=== PATIENT | female | born 1955 | race African-American/Black ===

== ENCOUNTER 2016-06-15 07:56 | Day surgery (SDC) | payer OTHER ==
[2016-06-14 13:30] VITALS: BMI 45.4
[2016-06-15] MEDS ORDERED: PROPOFOL 20 ML ONE ×3 (10:13)
[2016-06-15 11:48] VITALS: TEMP 98.4
[2016-06-15 12:44] VITALS: BP 143/68; PULSE 56
== END 2016-06-15 12:44 | disposition home or self-care (01) ==
LOC: JASU-ENDO 07:56
PROVIDERS: ATTEND Internal Medicine Gastroenterology
PROC: 0DJD8ZZ Inspection of Lower Intestinal Tract, Via Natural or Artificial Opening Endoscopic (ICD-10-PCS; principal; 2016-06-15 09:30)
DX: D64.9 Anemia, unspecified (principal); K57.30 Diverticulosis of large intestine without perforation or abscess without bleeding; Z85.3 Personal history of malignant neoplasm of breast

== ENCOUNTER → 2016-06-22 | Day surgery (SDC) | payer OTHER ==
[2016-06-21 14:02] VITALS: BMI 45.4
[2016-06-22 12:39] VITALS: TEMP 98
[2016-06-22 13:33] VITALS: BP 126/58; PULSE 63
--- NOTE | 2016-06-23 13:29 | PATH ---
Surgical Pathology Report Patient Name: SADIE BROWNE [facility]. Rec. #: [id number] /Age/Gender: 1955 (Age: 61) / F Account: [id number] Location: [facility]-ENDOSCOPY Taken: 06/22/2016 Received: 06/22/2016 Reported: 06/23/2016 Physicians: Tommy Feldman M.D. Specimen(s) Received BX EROSION BODY Clinical History Anemia Erosive gastritis Final Diagnosis STOMACH, BODY, EROSION, BIOPSY: GASTRIC OXYNTIC MUCOSA WITH MODERATE CHRONIC GASTRITIS WITH FOCAL SURFACE EROSION. IMMUNOSTAIN FOR H. PYLORI IS NEGATIVE FOR ORGANISMS. Electronically Signed Son Mcgarry M.D. Gross Description Received in formalin, labeled "biopsy erosion body" are 2 north, irregular portions of soft tissue measuring 0.2 and 0.7 cm in greatest dimension. The specimens are submitted in toto in one cassette. /06/22/201606/22/2016
== END | disposition home or self-care (01) ==
LOC: JASU-ENDO 09:47
PROVIDERS: ATTEND Internal Medicine Gastroenterology
PROC: 0DB68ZX Excision of Stomach, Via Natural or Artificial Opening Endoscopic, Diagnostic (ICD-10-PCS; principal; 2016-06-22 11:00)
DX: K21.9 Gastro-esophageal reflux disease without esophagitis (principal); K25.9 Gastric ulcer, unspecified as acute or chronic, without hemorrhage or perforation
CPT/HCPCS: 88305-TC; 88342-TC

== ENCOUNTER 2016-11-19 17:15 | Inpatient (IN) | payer OTHER ==
--- NOTE | 2016-11-19 17:18 | PDOC ---
History of Present Illness - General Stated Complaint: POSSIBLE STROKE Time Seen by Provider: 11/19/16 17:17 Past History - Past Medical History Allergies/Adverse Reactions: Allergies Allergy/AdvReac Type Severity Reaction Status Date / Time No Known Allergies Allergy Verified 02/23/15 11:26 Home Medications: Ambulatory Orders Tamoxifen Citrate 20 mg PO DAILY 01/11/12 Zolpidem Tartrate [Ambien] 10 mg PO HS 04/14/12 Pravastatin Sodium [Pravachol -] 20 mg PO HS 10/09/12 Sertraline HCl [Zoloft -] 100 mg PO DAILY 04/11/14 Amlodipine Besylate [Norvasc -] 5 mg PO DAILY 04/12/14 Hydrocodone Bit/Acetaminophen [Vicodin Hp 10-300mg -] 1 tab PO Q6H PRN #60 tablet 08/09/14 Hydrochlorothiazide 25 mg PO DAILY #30 tablet 02/23/15 Albuterol Sulfate Inhaler - [Ventolin HFA Inhaler -] 1 - 2 inh PO QID PRN Aspirin [ASA -] 81 mg PO DAILY 06/14/16 Bisacodyl [Dulcolax] 5 mg PO DAILY 06/14/16 Diphenhydramine HCl [Benadryl Capsule -] 25 mg PO DAILY 06/14/16 FENTANYL 50mcg PATCH [DURAGESIC 50mcg PATCH -] 1 patch TD ASDIR 06/14/16 Gabapentin 300 mg PO DAILY 06/14/16 Ibuprofen/Famotidine [Duexis 800-26.6 mg Tablet] 1 each PO DAILY PRN 06/14/16 Salmeterol/Fluticasone [Advair 250Mcg/50Mcg -] 1 inh IH DAILY PRN 06/14/16 Tizanidine HCl [Zanaflex] 2 mg PO HS 06/14/16 Anemia: Yes (AND SICKLE CELL TRAIT) Asthma: Yes Cancer: Yes (RT BREAST CA) Cardiac Disorders: No CVA: Yes (TIA X 3 RECENTLY 2012) COPD: No CHF: No Dementia: No Diabetes: No GI Disorders: Yes (GERD) Disorders: No HTN: Yes Hypercholesterolemia: Yes Liver Disease: Yes (FATTY) Psychiatric Problems: Yes (depression) Suicide Attempt (Hx): No Seizures: No Thyroid Disease: No - Surgical History Abdominal Surgery: Yes (bariatric GASTRIC SLEEVE 01/2011) Appendectomy: No Cardiac Surgery: No Cholecystectomy: No Gastric Stapling: Yes (gastric sleeve) Lung Surgery: No Neurologic Surgery: No Orthopedic Surgery: No - Psycho/Social/Smoking Cessation Hx Anxiety: No Suicidal Ideation: No Smoking Status: No Smoking History: Never smoked Have you smoked in the past 12 months: No Number of Cigarettes Smoked Daily: 0 If you are a former smoker, when did you quit?: 1999 Hx Alcohol Use: No Drug/Substance Use Hx: No Substance Use Type: None Hx Substance Use Treatment: No
--- NOTE | 2016-11-19 17:18 | PDOC ---
History of Present Illness - General History Source: Care Provider, Family Exam Limitations: Clinical Condition - History of Present Illness Initial Comments: 11/19/16 18:08 The patient is a 61 year old female with a significant past medical history of HTN, TIA, DM (not on medication), hyperlipidemia, depression, and breast CA ( partial right mastectomy), who presents to the ER with shaking for one day. Patients skilled nursing professional reports patient was in her usual state of health earlier today, made breakfast, and was verbally communicating with the aide. As per aide , patient took a nap and woke up reporting that she felt she was in deep sleep, like in a coma. Aide says that the patient began to shake and rub her arms up and down while sitting. Tears also started to run down patients face two hours ago, at 1630. As per daughter, patients mouth began to twitch and her speech slurred two days ago, then resolved. Denies nausea, vomiting Denies fever, chills, cough Denies syncope, lightheadedness, headache Denies changes in vision PCP: Dr. Goodman <Karmen Trejo - Last Filed: 11/19/16 18:28> <Lizett Adam - Last Filed: 11/19/16 18:35> <Mayte Penaloza - Last Filed: 11/19/16 19:32> - General Stated Complaint: POSSIBLE STROKE Time Seen by Provider: 11/19/16 17:17 Past History <Karmen Trejo - Last Filed: 11/19/16 18:28> - Past Medical History Anemia: Yes (AND SICKLE CELL TRAIT) Asthma: Yes Cancer: Yes (RT BREAST CA) Cardiac Disorders: No CVA: Yes (TIA X 3 RECENTLY 2012) COPD: No CHF: No Dementia: No Diabetes: No GI Disorders: Yes (GERD) Disorders: No HTN: Yes Hypercholesterolemia: Yes Liver Disease: Yes (FATTY) Psychiatric Problems: Yes (depression) Suicide Attempt (Hx): No Seizures: No Thyroid Disease: No - Surgical History Abdominal Surgery: Yes (bariatric GASTRIC SLEEVE 01/2011) Appendectomy: No Cardiac Surgery: No Cholecystectomy: No Gastric Stapling: Yes (gastric sleeve) Lung Surgery: No Neurologic Surgery: No Orthopedic Surgery: No - Psycho/Social/Smoking Cessation Hx Anxiety: No Suicidal Ideation: No Smoking Status: No Smoking History: Never smoked Have you smoked in the past 12 months: No Number of Cigarettes Smoked Daily: 0 If you are a former smoker, when did you quit?: 1999 Hx Alcohol Use: No Drug/Substance Use Hx: No Substance Use Type: None Hx Substance Use Treatment: No <Lizett Adam - Last Filed: 11/19/16 18:35> <Mayte Penaloza - Last Filed: 11/19/16 19:32> - Past Medical History Allergies/Adverse Reactions: Allergies Allergy/AdvReac Type Severity Reaction Status Date / Time No Known Allergies Allergy Verified 11/19/16 17:34 Home Medications: Ambulatory Orders Tamoxifen Citrate 20 mg PO DAILY 01/11/12 Zolpidem Tartrate [Ambien] 10 mg PO HS 04/14/12 Pravastatin Sodium [Pravachol -] 20 mg PO HS 10/09/12 Sertraline HCl [Zoloft -] 100 mg PO AM 04/11/14 Amlodipine Besylate [Norvasc -] 5 mg PO AM 04/12/14 Albuterol Sulfate Inhaler - [Ventolin HFA Inhaler -] 1 - 2 inh PO QID PRN Aspirin [ASA -] 81 mg PO AM 06/14/16 Bisacodyl [Dulcolax] 5 mg PO DAILY 06/14/16 Diphenhydramine HCl [Benadryl Capsule -] 50 mg PO DAILY PRN 06/14/16 Gabapentin 300 mg PO TID 06/14/16 Salmeterol/Fluticasone [Advair 250Mcg/50Mcg -] 1 inh IH DAILY PRN 06/14/16 Tizanidine HCl [Zanaflex] 4 mg PO BID PRN 06/14/16 Cholecalciferol (Vitamin D3) [Vitamin D3] 50,000 unit PO Q7D 11/19/16 Hydrochlorothiazide 25 mg PO AM 11/19/16 Tamoxifen Citrate 20 mg PO AM 11/19/16 Review of Systems - Review of Systems Able to Perform ROS?: No <Karmen Trejo - Last Filed: 11/19/16 18:28> *Physical Exam - Vital Signs Last Vital Signs Temp Pulse Resp BP Pulse Ox 99.3 F 60 18 198/84 96 11/19/16 17:15 11/19/16 17:15 11/19/16 17:15 11/19/16 17:15 11/19/16 17:15 - Physical Exam Comments: 11/19/16 18:09 GENERAL: Able to follow commands. Awake, alert, and fully oriented, in no acute distress HEAD: No signs of trauma EYES: PERRLA, EOMI, sclera anicteric, conjunctiva clear ENT: Pucked mouth, but symmetric. Unable to move mouth. Auricles normal inspection, hearing grossly normal, nares patent, oropharynx clear without exudates. Moist mucosa NECK: Normal ROM, supple, no lymphadenopathy, JVD, or masses LUNGS: Breath sounds equal, clear to auscultation bilaterally. No wheezes, and no crackles HEART: Regular rate and rhythm, normal S1 and S2, no murmurs, rubs or gallops ABDOMEN: Soft, nontender, normoactive bowel sounds. No guarding, no rebound. No masses EXTREMITIES: no edema. No clubbing or cyanosis. No cords, erythema, or tenderness NEUROLOGICAL: Left and right upper extremity some strength against gravity. 5/ 5 residential aide. Sensation intact. Cranial nerves II through XII grossly intact. SKIN: Warm, Dry, normal turgor, no rashes or lesions noted. <Uts,Karmen - Last Filed: 11/19/16 18:28> - Vital Signs Last Vital Signs Temp Pulse Resp BP Pulse Ox 99.3 F 56 L 16 174/81 100 11/19/16 17:15 11/19/16 18:36 11/19/16 18:36 11/19/16 18:36 11/19/16 18:36 <Mayte Penaloza - Last Filed: 11/19/16 19:32> NIH Stroke Scale - Last Known Well Date/Time & Onset Date Last Known Well: 11/19/16 Time Last Known Well: 16:30 - Initial Evaluation Level of consciousness: Alert Ask patient the month and their age: Both incorrect Ask patient to open & close eyes; make fist and let go: Both incorrect Best gaze (horizontal eye movement): Normal Visual field testing: No visual field loss Limb Ataxia: No ataxia Sensory(Use pinprick test arms,legs,trunk,face/side to side): Normal Best language (Describe picture, name items, read sentences): Mute Dysarthria (read several words): Near unintelligible or unable to speak Extinction and Inattention: No abnormality <Lizett Adam - Last Filed: 11/19/16 18:35> Critical Care Time/MDM Note - Medical Decision Making Note: 11/19/16 18:[address] Chicas <Karmen Trejo - Last Filed: 11/19/16 18:28> - Medical Decision Making Note: 11/19/16 18:33 Pt presents to the ED for the acute onset of aphasia, and restless, "shaking" movements of the arms. History of TIAs, also has depression for which she takes zoloft. On arrival to the ED, patient had symmmetric puckering of her lips, and was unable to speak. Is alert and follows commands with all extremities. Has global weakness--symmetric weakness of her bilateral upper and lower extremities. Symptoms seem more consistent with dystonic reaction than with CVA. Stat CT head negative. Case discussed with Dr. Chicas, who agrees that the patient is not a TPA candidate, but recommends that she be admitted for monitoring and MRI. Patient has some improvement after benadryl. <Lizett Adam - Last Filed: 11/19/16 18:35> Discharge Disposition <Karmen Trejo - Last Filed: 11/19/16 18:28> <Lizett Adam - Last Filed: 11/19/16 18:35> - Discharge Dispostion Admit: Yes <Mayte Penaloza - Last Filed: 11/19/16 19:32> - Diagnosis Cerebrovascular accident (CVA) - Discharge Dispostion Condition at time of disposition: Guarded - Referrals Referrals: Hellen Goodman [Primary Care Provider] -
[2016-11-19] MEDS ORDERED: SODIUM CHLORIDE 1,000 ML IV SCH (17:30)
[2016-11-19 17:59] VITALS: BMI 41.9
[2016-11-19 18:17] LABS: INR 0.96 (0.82-1.09); PROTHROMBIN TIME (PATIENT) 10.6 SEC (9.98-11.88)
[2016-11-19 18:19] LABS: ACTIVATED PTT 28.3 SECONDS (26.9-34.4); BASOPHIL 0.7 % (0-2.0); EOSINOPHIL 2.3 % (0-4.5); MCH 27.9 pg (25.7-33.7); MCHC 32.8 g/dl (32.0-36.0); MEAN CELL VOLUME 85.2 fl (80-96); MEAN PLT VOLUME 10.2 fl (7.5-11.1); NEUTROPHILS 63.8 % (42.8-82.8); PLATELET COUNT 215 K/MM3 (134-434); RDW 13.8 % (11.6-15.6); WHITE BLOOD COUNT 10.8 K/mm3 (4.0-10.0)
[2016-11-19 18:26] LABS: ALBUMIN 3.7 g/dl (3.4-5.0); ALK PHOS 83 U/L (45-117); ANION GAP 8 (8-16); BILIRUBIN,TOTAL 0.2 mg/dL (0.2-1.0); CALCIUM 8.6 mg/dL (8.5-10.1); CHOLESTEROL 228 mg/dL (50-200); CO2 27 mmol/L (21-32); CREATININE 0.8 mg/dL (0.55-1.02); GLUCOSE,RANDOM 87 mg/dL (74-106); LDL CHOLESTEROL (ONLY SJRH) 123 mg/dL (5-100); SGOT/AST 21 U/L (15-37); SGPT/ALT 32 U/L (12-78); TOT PROT 7.3 g/dl (6.4-8.2); TROPONIN I < 0.02 ng/ml (0.00-0.05)
[2016-11-19] MEDS ORDERED: ASPIRIN 300 MG SUPP.RECT RC ONE (18:38)
[2016-11-19] MEDS ORDERED: ASPIRIN 300 MG SUPP.RECT PR ONE (18:47)
--- NOTE | 2016-11-19 19:26 | PN ---
<Anita Jang - Last Filed: 11/19/16 19:26> Teaching Attending Note Name of Resident: Gonzales Seay <Salvador Shipley - Last Filed: 11/19/16 22:09> Teaching Attending Note ATTENDING PHYSICIAN STATEMENT I saw and evaluated the patient. I reviewed the resident's note and discussed the case with the resident. I agree with the resident's findings and plan as documented. SUBJECTIVE: The patient is a 61 year old female, accompanied by children, who presented to the ER with weakness for one day. As per ED note patients nursing home physician reported that the patient was in her usual state of health earlier today, made breakfast, and was verbally communicating with the aide. Patient took a nap and woke up feeling as though she was in deep sleep, like in a coma. Patient endorsed associated lightheadedness, dizziness, and blurred vision. As per daughter, patients mouth began to twitch and her speech slurred two days ago, then resolved. Upon examination, the patient was non-verbal but was able to nod in response to yes or no questions. Denies nausea, vomiting Denies fever, chills, cough Denies syncope, lightheadedness, headache Denies changes in vision PCP: Dr. Goodman PAST MEDICAL HISTORY: HTN, TIA x 3 (last was in 2012), DM (not on medication), hyperlipidemia, depression, breast cancer, asthma, sickle cell trait, GERD, hypercholesterolemia, PAST SURGICAL HISTORY: Partial right mastectomy, gastric sleeve (January 2011) FAMILY HISTORY: No pertinent history reported SOCIAL HISTORY: Former smoker (quit 1999) ALLERGIES: NKDA MEDICATIONS: Recently started taking gabapentin otherwise as per nursing note. OBJECTIVE: Last Vital Signs 3 Temp Pulse Resp BP Pulse Ox 99.3 F 56 L 16 174/81 100 11/19/16 17:15 11/19/16 18:36 11/19/16 18:36 11/19/16 18:36 11/19/16 18:36 Physical Examination: GENERAL: Awake, alert, and fully oriented, in no acute distress HEENT: (+) Atraumatic. PERRLA, Decreased temporal vision bilaterally. Moist mucosa. No JVD. Unable to open mandible LUNGS: No distress, speaks full sentences, clear to auscultation bilaterally HEART: Regular rate and rhythm, normal S1 and S2, no murmurs, rubs or gallops, peripheral pulses normal and equal bilaterally. ABDOMEN: Soft, nontender, normoactive bowel sounds. No guarding, no rebound. No masses EXTREMITIES: (+) Sander Operator strength 4/5 bilaterally. Foot strength 4/5 bilaterally. Bilateral upper extremity weakness (L>R) NEUROLOGICAL: (+) Cranial nerves II through XII grossly intact. Unable to speak , unable to ambulate. [place] SKIN: Warm, Dry, normal turgor, no rashes or lesions noted. Labs: CBCD 3 WBC 10.8 K/mm3 (4.0-10.0) H D 11/19/16 17:40 RBC 4.22 M/mm3 (3.60-5.2) 11/19/16 17:40 Hgb 11.8 GM/dL (10.7-15.3) D 11/19/16 17:40 Hct 36.0 % (32.4-45.2) D 11/19/16 17:40 MCV 85.2 fl (80-96) 11/19/16 17:40 MCHC 32.8 g/dl (32.0-36.0) 11/19/16 17:40 RDW 13.8 % (11.6-15.6) 11/19/16 17:40 Plt Count 215 K/MM3 (134-434) 11/19/16 17:40 MPV 10.2 fl (7.5-11.1) D 11/19/16 17:40 CMP 3 Sodium 146 mmol/L (136-145) H 11/19/16 17:40 Potassium 3.6 mmol/L (3.5-5.1) 11/19/16 17:40 Chloride 111 mmol/L (98-107) H 11/19/16 17:40 Carbon Dioxide 27 mmol/L (21-32) 11/19/16 17:40 Anion Gap 8 (8-16) 11/19/16 17:40 BUN 24 mg/dL (7-18) H 11/19/16 17:40 Creatinine 0.8 mg/dL (0.55-1.02) 11/19/16 17:40 Creat Clearance w eGFR > 60 (>60) 11/19/16 17:40 Calcium 8.6 mg/dL (8.5-10.1) 11/19/16 17:40 Total Bilirubin 0.2 mg/dL (0.2-1.0) D 11/19/16 17:40 AST 21 U/L (15-37) D 11/19/16 17:40 ALT 32 U/L (12-78) D 11/19/16 17:40 Alkaline Phosphatase 83 U/L (45-117) 11/19/16 17:40 Total Protein 7.3 g/dl (6.4-8.2) 11/19/16 17:40 Albumin 3.7 g/dl (3.4-5.0) 11/19/16 17:40 Imaging: EXAM: ECG. IMPRESSION: Sinus bradycardia otherwise normal ECG vent rate 52bpm EXAM: CHEST X-RAY PORTABLE* HISTORY PROVIDED: Rule out CVA. A single frontal portable projection of the chest at 6:16 PM is submitted. The heart size is enlarged. The lung webb are free of pulmonary infiltrates or pleural effusions. There is tortuosity and calcification of the thoracic aorta and degenerative arthritis of the thoracic spine. IMPRESSION: Cardiomegaly, no acute disease. Reported By: Yassine Hemphill MD 11/19/16 5810 EXAM: CT/HEAD CT (STROKE) HISTORY PROVIDED: Rule out CVA TECHNIQUE: Sequential axial images were obtained from the base of the skull to the vertex. There is no evidence of acute intracranial hemorrhage, mass lesions or infarctions. Since a prior study dated 02/23/2015, there has been no significant change. IMPRESSION: No evidence of acute intracranial pathology. Reported By: Yassine Hemphill MD 11/19/16 8332 ASSESSMENT AND PLAN : Acute dystonia versus stroke versus unlikely botulism versus tetnus check for hypothyroidism - 1 mg Cogentin vid - Neuro consult - Follow TSH - IVF NS 100 cc/ hr - Follow urinary analysis - CK in AM to r/o Rhabdomyolysis - MRI in AM Sinus nyasia - will place on telemetry to continue monitoring - Hold amlodipine and any beta blockers HTN - Give enalapril with vasotec IV PB 1.25 mg Q6H PRN DVT PPX - Heparin drip Admit to [facility]. Documentation prepared by Salvador Shipley, acting as medical equipment repair technician for Dr. Anita Jang MD.
[2016-11-19 20:21] LABS: URINE APPEARANCE CLEAR; URINE BILIRUBIN NEGATIVE (NEGATIVE); URINE BLOOD NEGATIVE (NEGATIVE); URINE COLOR STRAW; URINE GLUCOSE (UA) NEGATIVE (NEGATIVE); URINE KETONE NEGATIVE (NEGATIVE); URINE LEUK ESTERASE NEGATIVE (NEGATIVE); URINE NITRITE NEGATIVE (NEGATIVE); URINE PROTEIN NEGATIVE (NEGATIVE); URINE UROBILINOGEN NEGATIVE E.U./dl (0.2-1.0)
[2016-11-19] MEDS ORDERED: BENZTROPINE MESYLATE 2 MG/2 ML INJECTION IM ONE (20:30)
[2016-11-19] MEDS ORDERED: ACETAMINOPHEN 650 MG SUPP.RECT PR PRN (21:08)
[2016-11-19] MEDS ORDERED: ENALAPRILAT DIHYDRATE 1.25 MG/1 ML VIAL IVPB PRN ×2 (21:27→21:48)
--- NOTE | 2016-11-19 21:46 | HP ---
CHIEF COMPLAINT: dystonia PCP: Dr. Goodman HISTORY OF PRESENT ILLNESS: 61 y/o F w/PMH of HTN, TIA x3, DM (not on meds), HLD, depression, breast ca (s/ p R partial mastectomy), sickle cell trait presents to the ER for dystonia. Pt unable to talk at this time but can answer yes or no by nodding head or shaking head. Pt began having slurring of speech, light-headedness, and blurry vision 2 days ago which her son states happens every now and then. This morning she was able to speak and walk and went to take a nap. After waking up she had shaking of her body and was rubbing her hands up and down and her mouth was clenched closed and unable to open. She also has generalized weakness since waking up and is unable to ambulate. She denies any changes in her medications recently except the addition of gabapentin. She states she takes her medications as prescribed. She denies N/V/F/C, headache, CP, SOB, abd pain, dysuria, blood in urine, change in bowel movements, blood in stool, ringing in ears, sick contact , recent travel, recent trauma, any recent metal scrapes, raw honey consumption. Pt is AAOx3. ER course was notable for: (1) benadryl, asa 300 (2) cxr, head ct (3) Recent Travel: denies PAST MEDICAL HISTORY: HTN, TIA x3, DM (not on meds), HLD, depression, breast ca (s/p R partial mastectomy), sickle cell trait PAST SURGICAL HISTORY: partial R mastectomy Social History: Smoking: former smoker Alcohol: denies Drugs: denies Family History: unable to assess due to inability of pt to talk Allergies No Known Allergies Allergy (Verified 11/19/16 17:34) HOME MEDICATIONS: Home Medications Medication Instructions Recorded Tamoxifen Citrate 20 mg PO DAILY 01/11/12 Zolpidem Tartrate [Ambien] 10 mg PO HS 04/14/12 Pravastatin Sodium [Pravachol -] 20 mg PO HS 10/09/12 Sertraline HCl [Zoloft -] 100 mg PO AM 04/11/14 Amlodipine Besylate [Norvasc -] 5 mg PO AM 04/12/14 Albuterol Sulfate Inhaler - 1 - 2 inh PO QID PRN 06/14/16 [Ventolin HFA Inhaler -] Aspirin [ASA -] 81 mg PO AM 06/14/16 Bisacodyl [Dulcolax] 5 mg PO DAILY 06/14/16 Diphenhydramine HCl [Benadryl 50 mg PO DAILY PRN 06/14/16 Capsule -] Gabapentin 300 mg PO TID 06/14/16 Salmeterol/Fluticasone [Advair 1 inh IH DAILY PRN 06/14/16 250Mcg/50Mcg -] Tizanidine HCl [Zanaflex] 4 mg PO BID PRN 06/14/16 Cholecalciferol (Vitamin D3) 50,000 unit PO Q7D 11/19/16 [Vitamin D3] Hydrochlorothiazide 25 mg PO AM 11/19/16 Tamoxifen Citrate 20 mg PO AM 11/19/16 REVIEW OF SYSTEMS CONSTITUTIONAL: +generalized weakness Absent: fever, chills HEENT: +visual changes Absent: throat swelling, ear pain, eye pain CARDIOVASCULAR: +lightheadedness Absent: chest pain, syncope, palpitations, irregular heart rate RESPIRATORY: Absent: cough, shortness of breath GASTROINTESTINAL: Absent: abdominal pain, nausea, vomiting, diarrhea, constipation, hematochezia GENITOURINARY: Absent: dysuria, hematuria NEUROLOGIC: Absent: headache, seizure, mental status changes PHYSICAL EXAMINATION Vital Signs - 24 hr 11/19/16 11/19/16 17:15 18:36 Temperature 99.3 F Pulse Rate 60 Pulse Rate [ 56 L Apical] Respiratory 18 16 Rate Blood Pressure 198/84 Blood Pressure 174/81 [Left Arm] O2 Sat by Pulse 96 100 Oximetry (%) GENERAL: Awake, alert, and fully oriented, in no acute distress. HEAD: Normal with no signs of trauma. EYES: Pupils equal, round and reactive to light, extraocular movements intact, sclera anicteric, conjunctiva clear. No lid lag. EARS, NOSE, THROAT: Ears normal, nares patent, oropharynx clear without exudates. Moist mucous membranes. NECK: Normal range of motion, supple without lymphadenopathy LUNGS: Auscultated anteriorly: Breath sounds equal, clear to auscultation bilaterally. No wheezes, and no crackles. No accessory muscle use. HEART: Bradycardic, normal S1 and S2 without murmur, rub or gallop. ABDOMEN: Soft, nontender, not distended, normoactive bowel sounds, no guarding, no rebound, no masses. MUSCULOSKELETAL: 4/5 assistant toddler teacher strength, 4/5 foot strength with dorsi and plantar flexion. Can lift R arm approx 15 degrees, cannot lift L arm. Trapezius strength 3/5. LOWER EXTREMITIES: 2+ pulses, warm, well-perfused. No calf tenderness. No peripheral edema. NEUROLOGICAL: Unable to speak. Decreased sensation to light touch on L side on face, arms, legs. PSYCHIATRIC: Cooperative. Good eye contact. Appropriate mood and affect. SKIN: Warm, dry Laboratory Results - last 24 hr 11/19/16 11/19/16 11/19/16 17:40 17:40 17:40 WBC 10.8 H D RBC 4.22 Hgb 11.8 D Hct 36.0 D MCV 85.2 MCHC 32.8 RDW 13.8 Plt Count 215 MPV 10.2 D Neutrophils % 63.8 Lymphocytes % 29.0 Monocytes % 4.2 Eosinophils % 2.3 Basophils % 0.7 INR 0.96 PTT (Actin FS) 28.3 Sodium 146 H Potassium 3.6 Chloride 111 H Carbon Dioxide 27 Anion Gap 8 BUN 24 H Creatinine 0.8 Creat Clearance w eGFR > 60 Random Glucose 87 Calcium 8.6 Total Bilirubin 0.2 D AST 21 D ALT 32 D Alkaline Phosphatase 83 Creatine Kinase 109 Troponin I < 0.02 Total Protein 7.3 Albumin 3.7 Triglycerides 198 H D Cholesterol 228 H Total LDL Cholesterol 123 H HDL Cholesterol 84 H D Urine Color Urine Appearance Urine pH Urine Protein Urine Glucose (UA) Urine Ketones Urine Blood Urine Nitrite Urine Bilirubin Urine Urobilinogen Ur Leukocyte Esterase Blood Type Antibody Screen 11/19/16 11/19/16 17:40 20:15 WBC RBC Hgb Hct MCV MCHC RDW Plt Count MPV Neutrophils % Lymphocytes % Monocytes % Eosinophils % Basophils % INR PTT (Actin FS) Sodium Potassium Chloride Carbon Dioxide Anion Gap BUN Creatinine Creat Clearance w eGFR Random Glucose Calcium Total Bilirubin AST ALT Alkaline Phosphatase Creatine Kinase Troponin I Total Protein Albumin Triglycerides Cholesterol Total LDL Cholesterol HDL Cholesterol Urine Color Straw Urine Appearance Clear Urine pH 6.0 Urine Protein Negative Urine Glucose (UA) Negative Urine Ketones Negative Urine Blood Negative Urine Nitrite Negative Urine Bilirubin Negative Urine Urobilinogen Negative Ur Leukocyte Esterase Negative Blood Type A POSITIVE Antibody Screen Negative Imaging: CXR: cardiomegaly, no acute pathology Head CT: No evidence of acute intracranial pathology EKG: Sinus bradycardia @ 51 bpm; No ST segment changes noted. GA interval 178 ms; QTc 422 ms 1st degree AV block no longer present when compared to EKG from 03/2015 Active Medications Acetaminophen (Tylenol Suppository -) 650 mg GA Q6H PRN PRN Reason: FEVER Enalaprilat (Vasotec Injection -) 1.25 mg IVPB Q6H-IV PRN PRN Reason: hypertension Heparin Sodium (Porcine) (Heparin -) 5,000 unit SQ Q8H RAMSEY Sodium Chloride (Normal Saline -) 1,000 mls @ 100 mls/hr IV ASDIR RAMSEY ASSESSMENT/PLAN: 61 y/o F w/PMH of HTN, TIA x3, DM (not on meds), HLD, depression, breast ca (s/ p R partial mastectomy), sickle cell trait presents to the ER for dystonia. Admitted for dystonic reaction vs stroke. -Dystonic reaction vs Stroke vs TMJ vs Botulism vs Tetanus -hold anti-depressants -congentin 1 mg IM bid -MRI in AM to r/o stroke -NS @ 100 ml/hr to prevent rhabdo -Tylenol 650 mg GA q6h PRN for fevers -Neuro on board -MRI in AM -Get Tetanus records from PCP -Botulism unlikely, no abd symptoms, if no improvement, consider EMG -Aspirin 81 mg GA not available -Vital check q2h until 12 tomorrow -HTN -will hold home meds due to pt's bradycardia -enalaprilat 1.25 mg IVPB q6h PRN for htn -Sinus bradycardia -Pt has hx of sinus nyasia -will check TSH levels -Leukocytosis -possibly reactive -f/u UA -DVT ppx -heparin 5000 units q8h -FEN -NS @ 100 ml/hr -hypernatremia and hyperchloremia, monitor -NPO for now, will need to reassess in AM -Dispo: -Admit to tele Visit type - Emergency Visit Emergency Visit: Yes ED Registration Date: 11/19/16 Care time: The patient presented to the Emergency Department on the above date and was hospitalized for further evaluation of their emergent condition. - New Patient This patient is new to me today: Yes Date on this admission: 11/19/16 - Critical Care Critical Care patient: No
[2016-11-19] MEDS: SODIUM CHLORIDE 1,000 ML IV SCH (22:56)
[2016-11-19] MEDS: HEPARIN NA (PORCINE) 5,000 UNITS/ML 1ML VIAL SQ SCH (23:15)
[2016-11-20] MEDS: HEPARIN NA (PORCINE) 5,000 UNITS/ML 1ML VIAL SQ SCH ×3 (06:30→22:00)
--- NOTE | 2016-11-20 09:57 | EKG ---
Test Reason : Blood Pressure : / mmHG Vent. Rate : 051 BPM Atrial Rate : 051 BPM P-R Int : 178 ms QRS Dur : 084 ms QT Int : 458 ms P-R-T Axes : 030 030 041 degrees QTc Int : 422 ms SINUS BRADYCARDIA WHEN COMPARED WITH ECG OF 06-MAR-2015 16:51, QT HAS SHORTENED Confirmed by CALI FELTON MD ([id number]) on 11/20/2016 9:56:50 AM Referred By: Confirmed By:CALI FELTON MD
[2016-11-20] MEDS ORDERED: BENZTROPINE MESYLATE 2 MG/2 ML INJECTION IM SCH (10:00)
[2016-11-20] MEDS ORDERED: ASPIRIN 300 MG SUPP.RECT PR SCH (10:00)
[2016-11-20 10:04] LABS: EOSINOPHIL 2.4 % (0-4.5); MCH 28.5 pg (25.7-33.7); MCHC 33.6 g/dl (32.0-36.0); MEAN CELL VOLUME 84.8 fl (80-96); MEAN PLT VOLUME 9.5 fl (7.5-11.1); NEUTROPHILS 64.8 % (42.8-82.8); PLATELET COUNT 172 K/MM3 (134-434); RDW 13.7 % (11.6-15.6)
[2016-11-20 10:41] LABS: ALBUMIN 3.3 g/dl (3.4-5.0); ANION GAP 8 (8-16); BILIRUBIN,TOTAL 0.3 mg/dL (0.2-1.0); CALCIUM 8.2 mg/dL (8.5-10.1); CO2 28 mmol/L (21-32); CREATININE 0.7 mg/dL (0.55-1.02); GLUCOSE,RANDOM 100 mg/dL (74-106); SGOT/AST 23 U/L (15-37); SGPT/ALT 33 U/L (12-78); TOT PROT 6.5 g/dl (6.4-8.2)
[2016-11-20 10:49] LABS: ALK PHOS 78 U/L (45-117); THYROID STIMULATING HORMONE 1.69 uIU/ml (0.358-3.74)
[2016-11-20] MEDS: SODIUM CHLORIDE 1,000 ML IV SCH (11:20)
--- NOTE | 2016-11-20 12:30 | CONSULT ---
Consult - text type - Consultation Consultation Note: Neurology History of Present Illness The patient is a 61 year old female with a significant past medical history of HTN, TIA, DM (not on medication), hyperlipidemia, depression, and breast CA ( partial right mastectomy), who presents to the ER with shaking for one day. Patients assisted living nursing director reports patient was in her usual state of health reportedly took a nap and woke up felt she was in deep sleep, like in a coma . Aide says that the patient began to shake and rub her arms up and down while sitting. Tears also started to run down patients face two hours ago, at 1630. As per daughter, patients mouth began to twitch and her speech slurred two days ago, then resolved. In the hospital, she speaks at time, but when dughter is present, she is not speaking. Informed her that CT head was negative, will obtain MRI brain. Patient also on Fentanly and pain medication that she verbalized wanting and therefore not likely to be CVA as patient deficits come and go and seem to be volitional. MRI brain ordered to rule out infarct. Past History - Past Medical History Anemia: Yes (AND SICKLE CELL TRAIT) Asthma: Yes Cancer: Yes (RT BREAST CA) Cardiac Disorders: No CVA: Yes (TIA X 3 RECENTLY 2012) COPD: No CHF: No Dementia: No Diabetes: No GI Disorders: Yes (GERD) Disorders: No HTN: Yes Hypercholesterolemia: Yes Liver Disease: Yes (FATTY) Psychiatric Problems: Yes (depression) Suicide Attempt (Hx): No Seizures: No Thyroid Disease: No - Surgical History Abdominal Surgery: Yes (bariatric GASTRIC SLEEVE 01/2011) Appendectomy: No Cardiac Surgery: No Cholecystectomy: No Gastric Stapling: Yes (gastric sleeve) Lung Surgery: No Neurologic Surgery: No Orthopedic Surgery: No - Psycho/Social/Smoking Cessation Hx Anxiety: No Suicidal Ideation: No Smoking Status: No Smoking History: Never smoked Have you smoked in the past 12 months: No Number of Cigarettes Smoked Daily: 0 If you are a former smoker, when did you quit?: 1999 Hx Alcohol Use: No Drug/Substance Use Hx: No Substance Use Type: None Hx Substance Use Treatment: No - Past Medical History Allergies/Adverse Reactions: Allergies Allergy/AdvReac Type Severity Reaction Status Date / Time No Known Allergies Allergy Verified 11/19/16 17:34 Home Medications: Ambulatory Orders Tamoxifen Citrate 20 mg PO DAILY 01/11/12 Zolpidem Tartrate [Ambien] 10 mg PO HS 04/14/12 Pravastatin Sodium [Pravachol -] 20 mg PO HS 10/09/12 Sertraline HCl [Zoloft -] 100 mg PO AM 04/11/14 Amlodipine Besylate [Norvasc -] 5 mg PO AM 04/12/14 Albuterol Sulfate Inhaler - [Ventolin HFA Inhaler -] 1 - 2 inh PO QID PRN Aspirin [ASA -] 81 mg PO AM 06/14/16 Bisacodyl [Dulcolax] 5 mg PO DAILY 06/14/16 Diphenhydramine HCl [Benadryl Capsule -] 50 mg PO DAILY PRN 06/14/16 Gabapentin 300 mg PO TID 06/14/16 Salmeterol/Fluticasone [Advair 250Mcg/50Mcg -] 1 inh IH DAILY PRN 06/14/16 Tizanidine HCl [Zanaflex] 4 mg PO BID PRN 06/14/16 Cholecalciferol (Vitamin D3) [Vitamin D3] 50,000 unit PO Q7D 11/19/16 Hydrochlorothiazide 25 mg PO AM 11/19/16 Tamoxifen Citrate 20 mg PO AM 11/19/16 *Physical Exam - Vital Signs Last Vital Signs Temp Pulse Resp BP Pulse Ox 99.3 F 60 18 198/84 96 11/19/16 17:15 11/19/16 17:15 11/19/16 17:15 11/19/16 17:15 11/19/16 17:15 GENERAL: Able to follow commands. Awake, alert, and fully oriented, in no acute distress HEAD: No signs of trauma EYES: PERRLA, EOMI, sclera anicteric, conjunctiva clear ENT: Pucked mouth, but symmetric. Unable to move mouth. Auricles normal inspection, hearing grossly normal, nares patent, oropharynx clear without exudates. Moist mucosa NECK: Normal ROM, supple, no lymphadenopathy, JVD, or masses LUNGS: Breath sounds equal, clear to auscultation bilaterally. No wheezes, and no crackles HEART: Regular rate and rhythm, normal S1 and S2, no murmurs, rubs or gallops ABDOMEN: Soft, nontender, normoactive bowel sounds. No guarding, no rebound. No masses EXTREMITIES: no edema. No clubbing or cyanosis. No cords, erythema, or tenderness NEUROLOGICAL: Left and right upper extremity some strength against gravity. 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 Sensation intact. Cranial nerves II through XII grossly intact. Verbalizes at times. No focal deficits SKIN: Warm, Dry, normal turgor, no rashes or lesions noted. CT head without acute changes - Medical Decision Making 61 year old female with a significant past medical history of HTN, TIA, DM (not on medication), hyperlipidemia, depression, and breast CA (partial right mastectomy), who presents to the ER with speech slurred two days ago, then resolved. In the hospital, she speaks at time, but when dughter is present, she is not speaking. Informed her that CT head was negative, will obtain MRI brain. Patient also on Fentanly and pain medication that she verbalized wanting and therefore not likely to be CVA as patient deficits come and go and seem to be volitional. MRI brain ordered to rule out infarct.
[2016-11-20] MEDS ORDERED: ACETAMINOPHEN 325 MG TABLET (FP) PO PRN (13:35)
--- NOTE | 2016-11-20 13:39 | PN ---
Physical Exam: SUBJECTIVE: Patient seen and examined. States speaking is difficult because her mouth his dry. This morning nurse observed two fentanyl patches, one on each buttock; one hour later this provider observed one fentanyl patch; patient said her daughter removed the other patch; patient then reached and ripped off the remaining patch and said "it's old." Appeared to be 12mcg patch, disposed of. OBJECTIVE: Vital Signs Period Temp Pulse Resp BP Sys/Hare Pulse Ox Last 24 Hr 97.7 F-98.6 F 45-54 18-20 125-139/56-84 98-99 GENERAL: The patient is awake, alert, and fully oriented, in no acute distress. HEAD: Normal with no signs of trauma. EYES: PERRL, extraocular movements intact, sclera anicteric, conjunctiva clear. No ptosis. ENT: Ears normal, nares patent, oropharynx clear without exudates, moist mucous membranes. NECK: Trachea midline, full range of motion, supple. LUNGS: Breath sounds equal, clear to auscultation bilaterally, no wheezes, no crackles, no accessory muscle use. HEART: Regular rate and rhythm, S1, S2 without murmur, rub or gallop. ABDOMEN: Soft, nontender, nondistended, normoactive bowel sounds, no guarding, no rebound, no hepatosplenomegaly, no masses. EXTREMITIES: 2+ pulses, warm, well-perfused, no edema. NEUROLOGICAL: Cranial nerves II through XII grossly intact. Normal speech, gait not observed. Laboratory Results - last 24 hr 11/19/16 11/20/16 11/20/16 20:15 09:45 09:45 WBC 8.0 RBC 3.97 Hgb 11.3 Hct 33.7 MCV 84.8 MCHC 33.6 RDW 13.7 Plt Count 172 MPV 9.5 Neutrophils % 64.8 Lymphocytes % 27.9 Monocytes % 3.9 Eosinophils % 2.4 Basophils % 1.0 Sodium 146 H Potassium 3.5 Chloride 110 H Carbon Dioxide 28 Anion Gap 8 BUN 19 H D Creatinine 0.7 Creat Clearance w eGFR > 60 Random Glucose 100 Calcium 8.2 L Total Bilirubin 0.3 D AST 23 ALT 33 Alkaline Phosphatase 78 Creatine Kinase 77 Total Protein 6.5 Albumin 3.3 L TSH 1.69 Urine Color Straw Urine Appearance Clear Urine pH 6.0 Ur Specific [place] 1.015 Urine Protein Negative Urine Glucose (UA) Negative Urine Ketones Negative Urine Blood Negative Urine Nitrite Negative Urine Bilirubin Negative Urine Urobilinogen Negative Ur Leukocyte Esterase Negative Current Medications Generic Name Dose Route Start Last Admin Trade Name Margarita PRN Reason Stop Dose Admin Acetaminophen 650 mg 11/20/16 13:35 Tylenol - PO Q6H PRN FEVER OR PAIN Amlodipine Besylate 5 mg 11/21/16 10:00 Norvasc - PO DAILY [facility] Aspirin 81 mg 11/21/16 10:00 Ecotrin - PO DAILY [facility] Gabapentin 300 mg 11/20/16 14:00 Neurontin - PO TID [facility] Heparin Sodium (Porcine) 5,000 unit 11/19/16 22:30 11/20/16 13:41 Heparin - SQ 5,000 unit TID [facility] Administration Hydrochlorothiazide 25 mg 11/21/16 10:00 Hctz - PO DAILY [facility] Pravastatin Sodium 20 mg 11/21/16 10:00 Pravachol PO DAILY [facility] Sertraline HCl 100 mg 11/21/16 10:00 Zoloft - PO DAILY [facility] Tamoxifen Citrate 20 mg 11/21/16 10:00 Tamoxifen Citrate PO DAILY [facility] ASSESSMENT/PLAN 72 year-old woman with a PMH of HTN, HLD, TIA x 3, NIDDM, breast cancer s/p right partial mastectomy, and depression. Admitted for suspicion of TIA v. CVA. Found on physical exam today to have TWO (2) unprescribed fentanyl patches, one on each buttock. Patient claims prescribed by Dr. Sandoval Peacock. Check of ISTOP shows patient has no prescription for fentanyl. Altered mental status r/o TIA v. CVA --intermittent symptoms of altered mental status; appears to be volitional component --possibly the result of fentanyl abuse --CT head no acute process --MRI pending --continue ASA, statin --hold opiods, muscle relaxants; hold home tizanidine --neurology following Hypertension --continue amlodipine Hyperlipidemia --continue statin Breast cancer --continue Tamoxifen Depression --continue Zoloft F/E/N Fluids: PO intake adequate Electrolytes: replete as indicated Nutrition: diabetic diet DVT prophylaxis: subq heparin, oob, ambulation Dispo: continues to require inpatient care. Full Code. Visit type - Emergency Visit Emergency Visit: Yes ED Registration Date: 11/19/16 Care time: The patient presented to the Emergency Department on the above date and was hospitalized for further evaluation of their emergent condition. - New Patient This patient is new to me today: Yes Date on this admission: 11/20/16 - Critical Care Critical Care patient: No
[2016-11-20] MEDS: GABAPENTIN 300 MG CAPSULE (FP) PO SCH ×2 (17:19→22:00)
[2016-11-21] MEDS: HEPARIN NA (PORCINE) 5,000 UNITS/ML 1ML VIAL SQ SCH ×2 (06:04→13:59)
[2016-11-21] MEDS: GABAPENTIN 300 MG CAPSULE (FP) PO SCH ×2 (06:04→13:59)
--- NOTE | 2016-11-21 08:15 | PN ---
Teaching Attending Note Name of Resident: Helen Arriaza ATTENDING PHYSICIAN STATEMENT I saw and evaluated the patient. I reviewed the resident's note and discussed the case with the resident. I agree with the resident's findings and plan as documented. SUBJECTIVE: Patient is comfortable with no acute distress. OBJECTIVE: Vital Signs Temperature 98.6 F 11/21/16 02:11 Pulse Rate 55 L 11/21/16 06:00 Respiratory Rate 20 11/21/16 06:00 Blood Pressure 147/77 11/21/16 06:00 O2 Sat by Pulse Oximetry (%) 98 11/20/16 21:00 GENERAL: The patient is awake, alert, and fully oriented, in no acute distress. HEAD: Normal with no signs of trauma. EYES: PERRL, extraocular movements intact, sclera anicteric, conjunctiva clear. ENT: Ears normal, oropharynx clear without exudates, moist mucous membranes. NECK: Trachea midline, full range of motion, supple. LUNGS: Breath sounds equal, clear to auscultation bilaterally, no wheezes, no crackles, no accessory muscle use. HEART: Regular rate and rhythm, S1, S2 without murmur, rub or gallop. ABDOMEN: Soft, nontender, nondistended, normoactive bowel sounds, no guarding, no rebound, no hepatosplenomegaly, no masses. EXTREMITIES: 2+ pulses, warm, well-perfused, no edema. NEUROLOGICAL: Cranial nerves II through XII grossly intact. CBCD WBC 8.0 K/mm3 (4.0-10.0) 11/20/16 09:45 RBC 3.97 M/mm3 (3.60-5.2) 11/20/16 09:45 Hgb 11.3 GM/dL (10.7-15.3) 11/20/16 09:45 Hct 33.7 % (32.4-45.2) 11/20/16 09:45 MCV 84.8 fl (80-96) 11/20/16 09:45 MCHC 33.6 g/dl (32.0-36.0) 11/20/16 09:45 RDW 13.7 % (11.6-15.6) 11/20/16 09:45 Plt Count 172 K/MM3 (134-434) 11/20/16 09:45 MPV 9.5 fl (7.5-11.1) 11/20/16 09:45 CMP Sodium 146 mmol/L (136-145) H 11/20/16 09:45 Potassium 3.5 mmol/L (3.5-5.1) 11/20/16 09:45 Chloride 110 mmol/L (98-107) H 11/20/16 09:45 Carbon Dioxide 28 mmol/L (21-32) 11/20/16 09:45 Anion Gap 8 (8-16) 11/20/16 09:45 BUN 19 mg/dL (7-18) H D 11/20/16 09:45 Creatinine 0.7 mg/dL (0.55-1.02) 11/20/16 09:45 Creat Clearance w eGFR > 60 (>60) 11/20/16 09:45 Random Glucose 100 mg/dL (74-106) 11/20/16 09:45 Calcium 8.2 mg/dL (8.5-10.1) L 11/20/16 09:45 Total Bilirubin 0.3 mg/dL (0.2-1.0) D 11/20/16 09:45 AST 23 U/L (15-37) 11/20/16 09:45 ALT 33 U/L (12-78) 11/20/16 09:45 Alkaline Phosphatase 78 U/L (45-117) 11/20/16 09:45 Total Protein 6.5 g/dl (6.4-8.2) 11/20/16 09:45 Albumin 3.3 g/dl (3.4-5.0) L 11/20/16 09:45 CARDIAC ENZYMES Creatine Kinase 77 IU/L (26-192) 11/20/16 09:45 Troponin I < 0.02 ng/ml (0.00-0.05) 11/19/16 17:40 Current Medications Generic Name Dose Route Start Last Admin Trade Name Freq PRN Reason Stop Dose Admin Acetaminophen 650 mg 11/20/16 13:35 Tylenol - PO Q6H PRN FEVER OR PAIN Amlodipine Besylate 5 mg 11/21/16 10:00 Norvasc - PO DAILY [facility] Aspirin 81 mg 11/21/16 10:00 Ecotrin - PO DAILY [facility] Atorvastatin Calcium 10 mg 11/21/16 10:00 Lipitor - PO DAILY [facility] Gabapentin 300 mg 11/20/16 14:00 11/21/16 06:04 Neurontin - PO 300 mg TID [facility] Administration Heparin Sodium (Porcine) 5,000 unit 11/19/16 22:30 11/21/16 06:04 Heparin - SQ 5,000 unit TID [facility] Administration Hydrochlorothiazide 25 mg 11/21/16 10:00 Hctz - PO DAILY [facility] Sertraline HCl 100 mg 11/21/16 10:00 Zoloft - PO DAILY [facility] Tamoxifen Citrate 20 mg 11/21/16 10:00 Tamoxifen Citrate PO DAILY [facility] ASSESSMENT AND PLAN: 72 year-old woman with a PMH of HTN, HLD, TIA x 3, NIDDM, breast cancer s/p right partial mastectomy, and depression. Admitted for suspicion of TIA v. CVA. Found to have on physical exam on the day of admission TWO (2) unprescribed fentanyl patches, one on each buttock. Patient claims prescribed by Dr. Sandoval Peacock. Check of ISTOP shows patient has no prescription for fentanyl. # s/p TIA; CVA is rulled out by MRI, carotid doppler ordered which was negative for stenosis. On statin and aspirin continue. follwo up with neurologist. 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
[2016-11-21] MEDS ORDERED: PT OWN MED DRAWER 7, Y5N ONE ×2 (08:56→09:52)
[2016-11-21] MEDS ORDERED: amLODIPine BESYLATE 5 MG TABLET (FP) PO SCH (10:00)
[2016-11-21] MEDS ORDERED: SERTRALINE HCL 50 MG TABLET (FP) PO SCH (10:00)
[2016-11-21] MEDS ORDERED: TAMOXIFEN CITRATE 10 MG TABLET PO SCH (10:00)
[2016-11-21] MEDS ORDERED: ASPIRIN COATED 81 MG TABLET.EC PO SCH (10:00)
[2016-11-21] MEDS ORDERED: ATORVASTATIN CA 10 MG TABLET (FP) PO SCH (10:00)
[2016-11-21] MEDS ORDERED: HYDROCHLOROTHIAZIDE 25 MG TABLET (FP) PO SCH (10:00)
--- NOTE | 2016-11-21 12:24 | PN ---
Progress Note (short form) - Note Progress Note: Neurology History of Present Illness The patient is a 61 year old female with a significant past medical history of HTN, TIA, DM (not on medication), hyperlipidemia, depression, and breast CA ( partial right mastectomy), who presents to the ER with shaking for one day. Patients assistant professor of nursing reports patient was in her usual state of health reportedly took a nap and woke up felt she was in deep sleep, like in a coma . Aide says that the patient began to shake and rub her arms up and down while sitting. Tears also started to run down patients face two hours ago, at 1630. As per daughter, patients mouth began to twitch and her speech slurred two days ago, then resolved. In the hospital, she speaks at time, but when daughter is present, she is not speaking. Informed her that CT head was negative, MRI brain completed and did not show infarct. Patient also on Fentanly and pain medication for which she sees Dr. Peacock. Active Medications Acetaminophen (Tylenol -) 650 mg PO Q6H PRN PRN Reason: FEVER OR PAIN Amlodipine Besylate (Norvasc -) 5 mg PO DAILY [facility] Last Admin: 11/21/16 09:50 Dose: 5 mg Aspirin (Ecotrin -) 81 mg PO DAILY [facility] Last Admin: 11/21/16 09:50 Dose: 81 mg Atorvastatin Calcium (Lipitor -) 10 mg PO DAILY [facility] Last Admin: 11/21/16 09:50 Dose: 10 mg Gabapentin (Neurontin -) 300 mg PO TID [facility] Last Admin: 11/21/16 06:04 Dose: 300 mg Heparin Sodium (Porcine) (Heparin -) 5,000 unit SQ TID [facility] Last Admin: 11/21/16 06:04 Dose: 5,000 unit Hydrochlorothiazide (Hctz -) 25 mg PO DAILY [facility] Last Admin: 11/21/16 09:51 Dose: 25 mg Sertraline HCl (Zoloft -) 100 mg PO DAILY [facility] Last Admin: 11/21/16 09:50 Dose: 100 mg Tamoxifen Citrate (Tamoxifen Citrate) 20 mg PO DAILY [facility] Last Admin: 11/21/16 09:50 Dose: 20 mg *Physical Exam Vital Signs Temperature 98.1 F 11/21/16 08:19 Pulse Rate 53 L 11/21/16 08:19 Respiratory Rate 20 11/21/16 08:21 Blood Pressure 138/82 11/21/16 08:19 O2 Sat by Pulse Oximetry (%) 98 11/21/16 08:21 GENERAL: Able to follow commands. Awake, alert, and fully oriented, in no acute distress HEAD: No signs of trauma EYES: PERRLA, EOMI, sclera anicteric, conjunctiva clear ENT: Pucked mouth, but symmetric. Unable to move mouth. Auricles normal inspection, hearing grossly normal, nares patent, oropharynx clear without exudates. Moist mucosa NECK: Normal ROM, supple, no lymphadenopathy, JVD, or masses LUNGS: Breath sounds equal, clear to auscultation bilaterally. No wheezes, and no crackles HEART: Regular rate and rhythm, normal S1 and S2, no murmurs, rubs or gallops ABDOMEN: Soft, nontender, normoactive bowel sounds. No guarding, no rebound. No masses EXTREMITIES: no edema. No clubbing or cyanosis. No cords, erythema, or tenderness NEUROLOGICAL: Left and right upper extremity some strength against gravity. 5/ 5 dynamo tender. Sensation intact. Cranial nerves II through XII grossly intact. Verbalizes at times. No focal deficits SKIN: Warm, Dry, normal turgor, no rashes or lesions noted. CT head without acute changes MRI brain reviewed - Medical Decision Making 61 year old female with a significant past medical history of HTN, TIA, DM (not on medication), hyperlipidemia, depression, and breast CA (partial right mastectomy), who presents to the ER with speech slurred two days ago, then resolved. In the hospital, she speaks at time, but when dughter is present, she is not speaking. Informed her that CT head was negative, MRI brain negative. Patient also on Fentanly and pain medication, recommend follow up with Dr. Peacock regarding this. Recommend caution with opiods and paid medication as they can cause neurologic and mental status changes. Patient on ASA and can continue. Stroke prevention encouraged. No further rec'd at this time.
--- NOTE | 2016-11-21 18:17 | DS ---
Physical Exam: SUBJECTIVE: Patient seen and examined by me at bedside. No overnight events noted. Patient offers no complaints. Otherwise, patient denies fever, chills, nausea, vomiting, abdominal pain, chest pain, palpitations, shortness of breath , headaches, visual changes, dizziness, weakness. OBJECTIVE: Vital Signs Period Temp Pulse Resp BP Sys/Hare Pulse Ox Last 24 Hr 98.1 F-99.1 F 53-57 18-20 133-148/66-91 98-98 PHYSICAL EXAM GENERAL: The patient is awake, alert, and fully oriented, in no acute distress. LUNGS: Breath sounds equal, clear to auscultation bilaterally, no wheezes, no crackles, no accessory muscle use. HEART: Regular rate and rhythm, normal S1 and S2 without murmur, rub or gallop. ABDOMEN: Soft, nontender, nondistended, normoactive bowel sounds, no guarding. EXTREMITIES: No peripheral edema. NEUROLOGICAL: Normal speech, motor strength 5/5, sensory intact, CN II, III, IV , V, , VII, IX,X,XI,XII intavt IMAGES: Head CT (11/19/16): No evidence of acute intracranial pathology. Brain MRI (11/20/16): No discrete infarct is identified. Mild periventricular and subcortical chronic microvascular ischemic changes are noted. a chronic microbleed is seen within the right basal ganglia without interval change in comparison to a 2015 MRI study. A 1.4 x 0.7 cm osteoma is visualized along the inner table of the right temporal convexity. At the time of a previous MRI study of 03/06/2010 this osteoma had measured 1 x 0.5 cm. There has been no obvious interval change in comparison to the 2015 MRI exam. Carotid Doppler (11/21/16): There is no Doppler evidence of a high-grade carotid artery stenosis. Patent vertebral arteries. HOSPITAL COURSE: Patient is a 61 year old female with a PMHx of HTN, TIA x3, DM (diet controlled , HLD, Depression, Breast cancer s/p right partial mastectomy who presented for Altered Mental status and dysarthria. Patient's daughter reports she suddenly had slurred speech associated with lightheadedness, blurry vision, and headache. Stroke protocol was initiated and CT of the head was negative for acute intracranial pathology. Patient was given Aspirin and statin. MRI was done, which also revealed no acute intracranial pathology. Carotid Doppler also revealed no evidence of carotid artery stenosis. Patient's symptoms resolved and patient was able to speak without difficulty. However, when daughter is around, patient tends to have emphasized slurred speech. This morning patient reports resolution of symptoms and was able to communicate and articulate appropriately. Gait was observed and patient was able to ambulate without difficulty. Patient stable for discharged and was recommended to follow up with neurologist and PMD within one week. Patient's daughter at bedside and will be taking her home. Date of Admission:11/19/16 Date of Discharge: 11/21/16 Minutes to complete discharge: 35 Discharge Summary Reason For Visit: APHASIA/CVA Current Active Problems Cerebrovascular accident (CVA) (Acute) Hypertension (Acute) Leukocytosis (Acute) Condition: Stable - Instructions Diet, Activity, Other Instructions: -You were admitted for a possible stroke but the MRI revealed no acute stroke. However, you will need to follow up with the neurologist within a week for a follow up. -Please follow up with your primary care doctor within one week to adjust further medications. -Recommend caution with the use of Opioids and pain medications because they can cause worsening symptoms. Please follow up with Dr. Peacock for further monitoring. -You were found to have a small right temporal osteoma back in 2014 and repeat MRI revealed no change. Follow up with the neurosurgeon, Dr. Eric almonte within a week. -Continue with sodium controlled diet. -If you have worsening symptoms, return to the emergency department. Referrals: Hellen Goodman [Primary Care Provider] - 1 Week Kelsea Jj MD [Non Staff, Medical] - Benjy Almonte MD [Staff Physician] - 1 Month Disposition: HOME - Home Medications Comprehensive Discharge Medication List: Ambulatory Orders Tamoxifen Citrate 20 mg PO DAILY 01/11/12 Pravastatin Sodium [Pravachol -] 20 mg PO HS 10/09/12 Sertraline HCl [Zoloft -] 100 mg PO AM 04/11/14 Amlodipine Besylate [Norvasc -] 5 mg PO AM 04/12/14 Albuterol Sulfate Inhaler - [Ventolin HFA Inhaler -] 1 - 2 inh PO QID PRN Aspirin [ASA -] 81 mg PO AM 06/14/16 Gabapentin 300 mg PO TID 06/14/16 Salmeterol/Fluticasone [Advair 250Mcg/50Mcg -] 1 inh IH DAILY PRN 06/14/16 Hydrochlorothiazide 25 mg PO AM 11/19/16 This patient is new to me today: Yes Date on this admission: 11/21/16 Emergency Visit: Yes ED Registration Date: 11/19/16 Care time: The patient presented to the Emergency Department on the above date and was hospitalized for further evaluation of their emergent condition. Critical Care patient: No - Discharge Referral Referred to [facility] No
[2016-11-21 18:21] VITALS: BP 144/83; PULSE 55; TEMP 98.8
== END 2016-11-21 18:41 | disposition home or self-care (01) | DRG 58 ==
LOC: JER 17:15 → JERBED 19:49 → J4W 22:18
PROVIDERS: ADMIT Internal Medicine; ATTEND Internal Medicine
DX: R47.1 Dysarthria and anarthria (principal); R41.82 Altered mental status, unspecified; T40.4X5A Adverse effect of other synthetic narcotics, initial encounter; G45.8 Other transient cerebral ischemic attacks and related syndromes; I10 Essential (primary) hypertension; E78.5 Hyperlipidemia, unspecified; F32.9 Major depressive disorder, single episode, unspecified; J45.909 Unspecified asthma, uncomplicated; D16.4 Benign neoplasm of bones of skull and face; D57.3 Sickle-cell trait; K21.9 Gastro-esophageal reflux disease without esophagitis; K76.0 Fatty (change of) liver, not elsewhere classified; D72.829 Elevated white blood cell count, unspecified; Z98.84 Bariatric surgery status; E11.9 Type 2 diabetes mellitus without complications; G24.9 Dystonia, unspecified; R00.1 Bradycardia, unspecified; Z86.000 Personal history of in-situ neoplasm of breast; Z87.891 Personal history of nicotine dependence
CPT/HCPCS: 36415; 70450-TC; 70551-TC; 71010-TC; 80053; 81003; 82465; 82550; 83718; 83721; 84443; 84478; 84484; 85025; 85610; 85730; 86850; 86900; 86901; 93005; 93010; 93880-TC; 99285-25; J1644

== ENCOUNTER 2017-01-18 12:41 | Day surgery (SDC) | payer OTHER ==
[2017-01-03 19:32] VITALS: BMI 43.4
[~2017-01-18 12:41] MED LIST: BETAMET ACET/BETAMET NA PH 30 MG/5 ML VIAL IJ ONE; BETAMET ACET/BETAMET NA PH 30 MG/5 ML VIAL IM ONE; BUPIVACAINE HCL/PF 0.25% (2.5MG/ML) 10 ML VIAL IJ ONE; IOHEXOL 180 MG/1 ML ML IJ ONE; LIDOCAINE HCL 1%, 10 MG/ML (20ML VIAL) IJ ONE
[2017-01-18 13:10] VITALS: TEMP 98.3
[2017-01-18] MEDS ORDERED: BUPIVACAINE HCL/PF 0.25% (2.5MG/ML) 10 ML VIAL ONE (13:15)
[2017-01-18] MEDS ORDERED: LIDOCAINE HCL 1%, 10 MG/ML (20ML VIAL) ONE (13:15)
[2017-01-18] MEDS ORDERED: BUPIVACAINE HCL/PF 0.5% (5MG/ML) 10 ML VIAL ONE (13:15)
[2017-01-18] MEDS ORDERED: BETAMET ACET/BETAMET NA PH 30 MG/5 ML VIAL ONE (13:15)
[2017-01-18] MEDS ORDERED: IOHEXOL 180 MG/1 ML ML IJ ONE (15:01)
[2017-01-18] MEDS ORDERED: BUPIVACAINE HCL/PF 0.25% (2.5MG/ML) 10 ML VIAL IJ ONE (15:01)
[2017-01-18] MEDS ORDERED: LIDOCAINE HCL 1%, 10 MG/ML (20ML VIAL) IJ ONE (15:01)
[2017-01-18 16:26] VITALS: BP 123/66; PULSE 65
--- NOTE | 2017-01-20 11:46 | OP ---
DATE OF OPERATION: 01/18/2017 PREOPERATIVE DIAGNOSES: Low back pain, lumbar radiculopathy. POSTOPERATIVE DIAGNOSES: Low back pain, lumbar radiculopathy. PROCEDURE: Lumbar epidural steroid injection at the L4-L5 level on right side, interlaminar approach. ANESTHESIA: Local and MAC. ANESTHESIOLOGIST: Yulia Bowles MD DESCRIPTION OF PROCEDURE: I discussed with her about risks, benefits, and alternative treatment not only limited to infection, fever, headache, numbness, tingling, injury to blood vessels, muscles, and nerves. Patient understood, agreed, and signed the written consent. Patient was placed in prone position with the head, abdomen, and legs supported with pillows. Lumbosacral area was prepped and draped with Betadine x3 and alcohol x3. A 3-1/2-inch Tuohy needle was used to approach the epidural space at the level of L4-L5 under intermittent fluoroscopy with loss of resistance technique after injecting 3 mL of 1% lidocaine to the skin and subcutaneous tissue at the L4-L5 level. After negative aspiration, 3 mL of Omnipaque 180 was injected into the epidural space to see the flow of dye cranially and caudally and there was no uptake into the CSF or blood vessels. A solution containing 2.5 mL Celestone mixed with 0.25 mL preservative-free Marcaine, total volume of 5 mL, was injected at this level. While needle was withdrawn, 1 mL of 1% lidocaine was infiltrated. Bleeding was checked. Betadine was wiped off. Sterile bandage was placed. Patient was transferred to recovery room. Patient was observed for some time and discharged as per ASU criteria. Patient was told to apply ice. If any problem, call me or report to ER. Patient was given no followup appointment. CHIVO PHILLIPS M.D. SHANON/[id number]
== END 2017-01-18 16:15 | disposition home or self-care (01) ==
LOC: JASU-SURG 12:41
PROVIDERS: ATTEND Physical Medicine & Rehabilitation
PROC: 3E0R3CZ (ICD-10-PCS; 2017-01-18)
PROC: B01BZZZ Fluoroscopy of Spinal Cord (ICD-10-PCS; 2017-01-18)
PROC: 3E0R33Z Introduction of Anti-inflammatory into Spinal Canal, Percutaneous Approach (ICD-10-PCS; principal; 2017-01-18 14:30)
DX: M54.16 Radiculopathy, lumbar region (principal); M54.5 Low back pain
CPT/HCPCS: 76000-TC

== ENCOUNTER 2017-06-29 14:36 | Emergency (ER) | payer OTHER ==
[2017-06-29 14:41] VITALS: BP 158/88; PULSE 88; TEMP 98.3; BMI 43.7
--- NOTE | 2017-06-29 14:41 | PDOC ---
Rapid Medical Evaluation Time Seen by Provider: 06/29/17 14:38 Medical Evaluation: Allergies Allergy/AdvReac Type Severity Reaction Status Date / Time No Known Allergies Allergy Verified 06/29/17 14:38 I have performed a brief in-person evaluation of this patient. The patient presents with a chief complaint of: left neck and shoulder pain x 5 days Pertinent physical exam findings: pain with palpation of left AC joint, left trapezius and scalene muscles I have ordered the following: nothing The patient will proceed to the ED for further evaluation. Discharge Disposition - Diagnosis Musculoskeletal pain - Referrals Referrals: Hellen Goodman [Primary Care Provider] - - Patient Instructions - Post Discharge Activity
--- NOTE | 2017-06-29 17:00 | PDOC ---
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 has chronic issues with bilateral shoulder discomfort. And is currently in pain management for same. received a steroid injection last Tuesday afternoon with no resolution of this left shoulder neck and back pain. Pain issues with bilateral shoulders and neck arthritis. neuropathies have worsened after her stroke last year. Past History - Past Medical History Allergies/Adverse Reactions: Allergies Allergy/AdvReac Type Severity Reaction Status Date / Time No Known Allergies Allergy Verified 06/29/17 14:38 Home Medications: Ambulatory Orders Tamoxifen Citrate 20 mg PO DAILY 01/11/12 Pravastatin Sodium [Pravachol -] 20 mg PO HS 10/09/12 Sertraline HCl [Zoloft -] 100 mg PO AM 04/11/14 Amlodipine Besylate [Norvasc -] 5 mg PO AM 04/12/14 Albuterol Sulfate Inhaler - [Ventolin HFA Inhaler -] 1 - 2 inh PO QID PRN Aspirin [ASA -] 81 mg PO AM 06/14/16 Gabapentin 300 mg PO TID 06/14/16 Salmeterol/Fluticasone [Advair 250Mcg/50Mcg -] 1 inh IH DAILY PRN 06/14/16 Hydrochlorothiazide 25 mg PO AM 11/19/16 Prednisone [Deltasone -] 20 mg PO BID #8 tablet 06/29/17 Anemia: Yes (AND SICKLE CELL TRAIT) Asthma: Yes Cancer: Yes (RT BREAST CA) Cardiac Disorders: No CVA: Yes (TIA X 3 RECENTLY 2012) COPD: No CHF: No Dementia: No Diabetes: Yes (no medication) GI Disorders: Yes (GERD) Disorders: No HTN: Yes Hypercholesterolemia: Yes Liver Disease: Yes (FATTY LIVER) Psychiatric Problems: Yes (depression) Seizures: No Thyroid Disease: No - Surgical History Abdominal Surgery: Yes (bariatric GASTRIC SLEEVE 01/2011) Appendectomy: No Cardiac Surgery: No Cholecystectomy: No Gastric Stapling: Yes (gastric sleeve) Lung Surgery: No Neurologic Surgery: No Orthopedic Surgery: No - Suicide/Smoking/Psychosocial Hx Smoking Status: No Smoking History: Former smoker Have you smoked in the past 12 months: No Number of Cigarettes Smoked Daily: 0 If you are a former smoker, when did you quit?: 1999 Information on smoking cessation initiated: No Hx Alcohol Use: No Drug/Substance Use Hx: No Substance Use Type: None Hx Substance Use Treatment: No Trauma Specific PMHX - Complaint Specific PMHX Arthritis: No Review of Systems - Review of Systems Able to Perform ROS?: Yes Is the patient limited Pashto proficient: Yes Constitutional: Yes: See HPI. No: Symptoms Reported, Chills, Fever, Loss of Appetite, Malaise HEENTM: Yes: See HPI. No: Symptoms Reported Respiratory: Yes: See HPI. No: Symptoms reported, Cough Cardiac (ROS): Yes: See HPI. No: Symptoms Reported, Chest Pain Musculoskeletal: Yes: Symptoms Reported, See HPI, Joint Pain, Joint Swelling, Muscle Pain Integumentary: Yes: Symptoms Reported, See HPI Neurological: Yes: Symptoms reported, See HPI All Other Systems: Reviewed and Negative *Physical Exam - Vital Signs Last Vital Signs Temp Pulse Resp BP Pulse Ox 98.3 F 88 18 158/88 99 06/29/17 14:37 06/29/17 14:37 06/29/17 14:37 06/29/17 14:37 06/29/17 14:37 - Physical Exam General Appearance: Yes: Nourished, Appropriately Dressed, Apparent Distress, Mild Distress HEENT: positive: EUGENE, Normal ENT Inspection, TMs Normal, Pharynx Normal Neck: positive: Tender, Supple, Tender lateral (to left aspect car mastoid and upper trapezius with tender knots on the upper lateral aspect of those muscles. Has no true C-spine tenderness, and able to reproduce pain to left shoulder and arm by pushing triggerpoints at midpoint upper trapezius on left side.) Respiratory/Chest: positive: Lungs Clear Extremity: positive: Normal Capillary Refill, Normal Inspection, Tender ( limited range of motion secondary to tenderness this reproduces to left shoulder area and muscle groups of neck. ). 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 negative: Abnormal Cranial NS, Numbness, Sensory Deficit Progress Note - Progress Note Progress Note: Acute on chronic neck and shoulder pain. Ineffective steroid injection last week. We will provide IM Toradol and 5 day course of by mouth prednisone. Patient is already taking gabapentin and Neurontin, is alreaDY attending pain management with Dr. Toribio for same there is no other clinical indication of other path ALLERGY or illness as patient reports this to being exact same problem she suffered from for many months now. *DC/Admit/Observation/Transfer Diagnosis at time of Disposition: Musculoskeletal pain - Discharge Dispostion Disposition: HOME Condition at time of disposition: Stable Admit: No - Prescriptions Prescriptions: Prednisone [Deltasone -] 20 mg PO BID #8 tablet - Referrals Referrals: Hellen Goodman [Primary Care Provider] - Sandoval Peacock MD [Staff Physician] - - Patient Instructions Printed Discharge Instructions: DI for Shoulder Pain Additional Instructions: Rest, ice to area on and off for 15 minutes 4-6 times a day Avoid heavy lifting or exercise until pain and swelling is resolved or until further directed Keep area highly elevated to reduce swelling Use splints/Tc wrap as directed Followup with orthopedist in one to 2 days if not improving, if significantly improved may wait one week for followup with orthopedist May use ibuprofen 2-200 mg tablets every 6 hours as needed for pain - Post Discharge Activity Forms/Work/School Notes: Back to Work
[2017-06-29] MEDS ORDERED: KETOROLAC TROMETHAMINE 60 MG/2 ML VIAL IM ONE (17:13)
[2017-06-29] MEDS ORDERED: predniSONE 20 MG TABLET (UD) PO ONE (17:13)
[2017-06-29] MEDS ORDERED: KETOROLAC TROMETHAMINE 60 MG/2 ML VIAL ONE (17:17)
[2017-06-29] MEDS ORDERED: predniSONE 20 MG TABLET (UD) ONE (17:17)
== END 2017-06-29 17:29 | disposition home or self-care (01) ==
LOC: JER 14:36 → JERFT 14:36
PROC: 3E0233Z Introduction of Anti-inflammatory into Muscle, Percutaneous Approach (ICD-10-PCS; principal; 2017-06-29)
DX: M46.82 Other specified inflammatory spondylopathies, cervical region (principal); M54.2 Cervicalgia; M25.512 Pain in left shoulder; I10 Essential (primary) hypertension; E11.9 Type 2 diabetes mellitus without complications; E78.00 Pure hypercholesterolemia, unspecified; F32.9 Major depressive disorder, single episode, unspecified; D57.3 Sickle-cell trait; Z86.73 Personal history of transient ischemic attack (TIA), and cerebral infarction without residual deficits; Z85.3 Personal history of malignant neoplasm of breast; Z98.84 Bariatric surgery status
CPT/HCPCS: 99281-25

== ENCOUNTER 2017-11-04 16:13 | Emergency (ER) | payer OTHER ==
[2017-11-04 16:21] VITALS: BP 123/79; PULSE 68; TEMP 99; BMI 43.7
[2017-11-04] MEDS ORDERED: KETOROLAC TROMETHAMINE 60 MG/2 ML VIAL IM ONE (16:43)
[2017-11-04] MEDS ORDERED: KETOROLAC TROMETHAMINE 60 MG/2 ML VIAL ONE (16:43)
--- NOTE | 2017-11-04 16:46 | PDOC ---
Attending Attestation - Resident Resident Name: Yuan Rojas - ED Attending Attestation I have performed the following: I have examined & evaluated the patient, The case was reviewed & discussed with the resident, I agree w/resident's findings & plan, Exceptions are as noted - HPI HPI: 11/04/17 17:04 The patient is a 62 year old female with a significant past medical history of right breast cancer, TIA (3x, last 2012), hypertension, diabetes, and asthma, who presents to the emergency department for evaluation of left sided neck pain. The patient reports exacerbation of chronic left sided neck pain after having an MRI taken today. She describes the left sided neck pain as severe, radiating to the left shoulder. The patient reports she was in one position in the MRI today for 1 hour which brought on the pain. She denies any numbness or weakness. Pt sees pain management, has vicodin at home for pain control. The patient denies chest pain, shortness of breath, headache, and dizziness. She denies fever, chills, nausea, vomiting, diarrhea, and constipation. Denies any other types of injuries. Allergies: NKA Past surgical history: Bariatric Gastric Sleeve 01/2011 Social history: No reported cigarette, alcohol, or drug use. PCP: Dr. Eloy Strong ([id number]) - Physicial Exam PE: 11/04/17 16:47 GENERAL: Awake, alert, and fully oriented, in no acute distress HEAD: No signs of trauma EYES: PERRLA, EOMI, sclera anicteric, conjunctiva clear ENT: Auricles normal inspection, hearing grossly normal, nares patent, oropharynx clear without exudates. Moist mucosa NECK: No midline cervical ttp, +cervical paraspinal tenderness to deep palpation. Also ttp along the L trapezius LUNGS: Breath sounds equal, clear to auscultation bilaterally. No wheezes, and no crackles HEART: Regular rate and rhythm, normal S1 and S2, no murmurs, rubs or gallops ABDOMEN: Soft, nontender, normoactive bowel sounds. No guarding, no rebound. No masses EXTREMITIES: Normal range of motion, no edema. No clubbing or cyanosis. No cords, erythema, or tenderness NEUROLOGICAL: Normal speech, cranial nerves intact, negative pronator drift, 5/ 5 strength in all 4 extremities, normal sensation to light touch in all 4 extremities, normal cerebellar exam, normal gait, normal reflexes and tone SKIN: Warm, Dry, normal turgor, no rashes or lesions noted. - Medical Decision Making 11/04/17 16:51 62-year-old female with multiple medical problems presents emergency Department with acute exacerbation of her chronic left neck pain right after her MRI. Vitals unremarkable. Exam with tenderness palpation along the cervical paraspinal muscles and left trapezius. Exacerbation is likely secondary to having to lie still in the MRI machine for almost one hour. Will treat with IM Toradol and reassess. Patient has Vicodin at home for pain control from her pain management doctor. 11/04/17 18:30 Pain significantly improved with Toradol. Patient feels well and requests discharge home. I discussed the physical exam findings, ancillary test results and final diagnoses with the patient. I answered all of the patient's questions. The patient was satisfied with the care received and felt comfortable with the discharge plan and treatment plan. The patient will call their primary care physician within 24 hours to arrange follow-up and will return to the Emergency Department with any new, persistent or worsening symptoms.
--- NOTE | 2017-11-04 16:48 | PDOC ---
History of Present Illness - General Chief Complaint: Chronic pain Stated Complaint: CHRONIC NECK PAIN Time Seen by Provider: 11/04/17 16:20 History Source: Patient Exam Limitations: No Limitations - History of Present Illness Initial Comments: 11/04/17 16:48 The patient is a 62F with a PMH of chronic neck pain being evaluated by Dr. Strong, neurosurgery, who presents to the ER for worsening neck pain. The patient states that she just finished getting an MRI and began to feel the pain worsening and decided to present to the ER. She states the pain is the same just more severe. She denies any changes or differences in this pain compared to her previous. She denies numbness, tinging, weakness, fever, chills, nausea, vomiting. Pt's neck pain started 4 months ago, is sharp, originates in neck and radiates down her L arm. She states that today's pain is the same, just agitated by the MRI. Past History - Past Medical History Allergies/Adverse Reactions: Allergies Allergy/AdvReac Type Severity Reaction Status Date / Time No Known Allergies Allergy Verified 06/29/17 14:38 Home Medications: Ambulatory Orders Tamoxifen Citrate 20 mg PO DAILY 01/11/12 Pravastatin Sodium [Pravachol -] 20 mg PO HS 10/09/12 Sertraline HCl [Zoloft -] 100 mg PO AM 04/11/14 Amlodipine Besylate [Norvasc -] 5 mg PO AM 04/12/14 Albuterol Sulfate Inhaler - [Ventolin HFA Inhaler -] 1 - 2 inh PO QID PRN Aspirin [ASA -] 81 mg PO AM 06/14/16 Gabapentin 300 mg PO TID 06/14/16 Salmeterol/Fluticasone [Advair 250Mcg/50Mcg -] 1 inh IH DAILY PRN 06/14/16 Hydrochlorothiazide 25 mg PO AM 11/19/16 Anemia: Yes (AND SICKLE CELL TRAIT) Asthma: Yes Cancer: Yes (RT BREAST CA) Cardiac Disorders: No CVA: Yes (TIA X 3 last 2012) COPD: No CHF: No Dementia: No Diabetes: Yes GI Disorders: Yes (GERD) Disorders: No HTN: Yes Hypercholesterolemia: Yes Liver Disease: Yes (FATTY LIVER) Psychiatric Problems: Yes (depression) Seizures: No Thyroid Disease: No - Surgical History Abdominal Surgery: Yes (bariatric GASTRIC SLEEVE 01/2011) Appendectomy: No Cardiac Surgery: No Cholecystectomy: No Gastric Stapling: Yes (gastric sleeve) Lung Surgery: No Neurologic Surgery: No Orthopedic Surgery: No - Suicide/Smoking/Psychosocial Hx Smoking Status: No Smoking History: Former smoker Have you smoked in the past 12 months: No Number of Cigarettes Smoked Daily: 0 If you are a former smoker, when did you quit?: 1999 Information on smoking cessation initiated: No Hx Alcohol Use: No Drug/Substance Use Hx: No Substance Use Type: None Hx Substance Use Treatment: No Review of Systems - Review of Systems Able to Perform ROS?: Yes Comments:: 11/04/17 16:49 GENERAL/CONSTITUTIONAL: No fever or chills. No weakness. HEAD, EYES, EARS, NOSE AND THROAT: No change in vision. No ear pain or discharge. No sore throat. CARDIOVASCULAR: No chest pain, palpitations, or lightheadedness. RESPIRATORY: No cough, wheezing, shortness of breath, or hemoptysis. GASTROINTESTINAL: No nausea, vomiting, diarrhea, constipation, or abdominal pain. GENITOURINARY: No dysuria, frequency, hematuria, or change in urination. MUSCULOSKELETAL: Positive for neck pain radiating down arm. No joint or muscle swelling or pain. No back pain. SKIN: No rash or lesions. NEUROLOGIC: No headache, numbness, tingling, weakness, loss of consciousness, or change in strength/sensation. ENDOCRINE: No increased thirst. No abnormal weight change. HEMATOLOGIC/LYMPHATIC: No anemia, easy bleeding, or history of blood clots. ALLERGIC/IMMUNOLOGIC: No hives or skin allergy. Is the patient limited Lao proficient: No *Physical Exam - Vital Signs Last Vital Signs Temp Pulse Resp BP Pulse Ox 99.0 F 68 18 123/79 99 11/04/17 16:14 11/04/17 16:14 11/04/17 16:14 11/04/17 16:14 11/04/17 16:14 - Physical Exam Comments: 11/04/17 16:50 GENERAL: Well developed, well nourished. Awake and alert. No acute distress. HEENT: Normocephalic, atraumatic. Hearing grossly normal. Moist mucous membranes. PERRLA, EOMI. No conjunctival pallor. Sclera are non-icteric. NECK: Supple. Full ROM. CARDIOVASCULAR: Regular rate and rhythm. No murmurs, rubs, or gallops. PULMONARY: No evidence of respiratory distress. Lungs clear to auscultation bilaterally. No wheezing, rales or rhonchi. ABDOMINAL: Soft. Non-tender. Non-distended. No rebound or guarding. GENITOURINARY: No CVA tenderness bilaterally. MUSCULOSKELETAL: Normal range of motion at all joints. No bony deformities or tenderness. Radial pulses 2+ and equal. EXTREMITIES: No cyanosis. No clubbing. No edema. No calf tenderness or swelling. SKIN: Warm and dry. Normal capillary refill. No rashes. No jaundice. NEUROLOGICAL: Alert, awake, appropriate. Cranial nerves 2-12 intact. No deficits to light touch and temperature in face, upper extremities and lower extremities. No motor deficits in the in face, upper extremities and lower extremities. Normal speech. Gait is normal without ataxia. PSYCHIATRIC: Cooperative. Good eye contact. Appropriate mood and affect. 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 The patient is neurovascularly intact and I do not suspect any changes in her neuro exam as her exam was normal with me. Will give toradol IM and monitor with neurosurg f/u. 11/04/17 17:25 Pt states she feels much better and will f/u with her pain management dr and neurosurgeon. *DC/Admit/Observation/Transfer Diagnosis at time of Disposition: Chronic neck pain - Discharge Dispostion Disposition: HOME Condition at time of disposition: Good Decision to Admit order: No - Referrals Referrals: Eloy Strong MD [Primary Care Provider] - - Patient Instructions Printed Discharge Instructions: DI for Chronic Neck Pain Additional Instructions: Please follow up with your pain management doctor and neurosurgeon in 2-3 days. Please return to the ER if you have any signs or symptoms of chest pain, shortness of breath, uncontrollable fever, chills, nausea, vomiting, numbness, tingling, or weakness in any part of your body, changes in vision, or slurred speech. Please take your medications as prescribed. Please return to the ER if symptoms persist, worsen, or new symptoms arise. - Post Discharge Activity
== END 2017-11-04 17:32 | disposition home or self-care (01) ==
LOC: FER 16:13 → SUPCPDRO 16:13 → FER 17:32
PROC: 3E0233Z Introduction of Anti-inflammatory into Muscle, Percutaneous Approach (ICD-10-PCS; principal; 2017-11-04)
DX: M54.2 Cervicalgia (principal); G89.29 Other chronic pain
CPT/HCPCS: 96372; 99282-25

== ENCOUNTER 2018-09-29 17:16 | Emergency (ER) | payer OTHER ==
[2018-09-29] MEDS ORDERED: ACETAMINOPHEN WITH CODEINE 300MG/30MG TABLET PO ONE (17:19)
--- NOTE | 2018-09-29 17:45 | PDOC ---
Documentation entered by Nora Benjamin SCRIBE, acting as scribe for Bettina Thrasher MD. Bettina Thrasher MD: This documentation has been prepared by the emilioibe, Nora Benjamin SCRIBE, under my direction and personally reviewed by me in its entirety. I confirm that the documentation accurately reflects all work, treatment, procedures, and medical decision making performed by me. History of Present Illness - General Chief Complaint: Pain Stated Complaint: RT SHOULDER PAIN Time Seen by Provider: 09/29/18 17:18 History Source: Patient Exam Limitations: No Limitations - History of Present Illness Initial Comments: 09/29/18 17:34 The patient is a 63-year-old female with a past medical history significant for R. breast CA, TIA (x3, with a speech impediment) HTN, DM, asthma, arthritis (to the spine and knees) presents to the emergency department with right shoulder pain with swelling to the hand. The patient reports several weeks ago she was diagnosed with tendonitis, with chronic pain to the right shoulder, thats aggravated with touch and movement of any. The patient reports she had difficulty sleeping on the hand. The patient reports secondary to the pain, and she is unable to do her daily routines, such as driving or cooking. The patient states she woke up today with swelling to the right hand. The patient reports several days she was cleaning her closet when a bag of shoes fell on her shoulder. The patient states she has an appointment with Dr. Solorzano on the . Denies fever, chills. Denies hx of gout. Allergies: NKDA Surgical history: Partial hysterectomy, , bariatric sleeve, x2 foot surgery. Social history: Denies the use of tobacco, alcohol or drugs. PCP: Aracelis Talley. Past History - Past Medical History Allergies/Adverse Reactions: Allergies Allergy/AdvReac Type Severity Reaction Status Date / Time No Known Allergies Allergy Verified 01/11/18 19:28 Home Medications: Ambulatory Orders Tamoxifen Citrate 20 mg PO DAILY 01/11/12 Sertraline HCl [Zoloft -] 50 mg PO AM 04/11/14 Amlodipine Besylate [Norvasc -] 5 mg PO AM 04/12/14 Albuterol Sulfate Inhaler - [Ventolin HFA Inhaler -] 1 - 2 inh PO QID PRN 01/09/ 17 Aspirin [ASA -] 81 mg PO AM 06/14/16 Gabapentin 100 mg PO DAILY 06/14/16 Salmeterol/Fluticasone [Advair 250Mcg/50Mcg -] 1 inh IH DAILY PRN 06/14/16 Hydrochlorothiazide 25 mg PO AM 11/19/16 Acetaminophen [Tylenol] 650 mg PO QID PRN 01/11/18 Bisacodyl [Dulcolax] 5 mg PO DAILY 01/11/18 Diphenhydramine HCl [Benadryl Capsule -] 25 mg PO DAILY 01/11/18 Famotidine [Pepcid] 20 mg PO DAILY 01/11/18 Lamotrigine [Lamictal Xr] 25 mg PO DAILY 01/11/18 Tizanidine HCl [Zanaflex] 4 mg PO HS 01/11/18 Topiramate [Topamax] 25 mg PO DAILY 01/11/18 Zolpidem Tartrate [Ambien] 10 mg PO HS 01/11/18 Atorvastatin Ca [Lipitor] 10 mg PO HS #30 tablet 01/13/18 Acetaminophen W/ Codeine #3 [Tylenol # 3 -] 1 tab PO Q8H PRN #15 tablet MDD 3 Anemia: Yes (AND SICKLE CELL TRAIT) Asthma: Yes Cancer: Yes (RT BREAST CA) Cardiac Disorders: No CVA: Yes (TIA X 3 last 2012) COPD: No CHF: No Dementia: No Diabetes: Yes GI Disorders: Yes (GERD) Disorders: No HTN: Yes Hypercholesterolemia: Yes Liver Disease: Yes (FATTY LIVER) Psychiatric Problems: Yes (depression) Seizures: No Thyroid Disease: No - Surgical History Abdominal Surgery: Yes (bariatric GASTRIC SLEEVE 01/2011) Appendectomy: No Cardiac Surgery: No Cholecystectomy: No Gastric Stapling: Yes (gastric sleeve) Lung Surgery: No Neurologic Surgery: No Orthopedic Surgery: No - Suicide/Smoking/Psychosocial Hx Smoking Status: No Smoking History: Former smoker Have you smoked in the past 12 months: No Number of Cigarettes Smoked Daily: 0 If you are a former smoker, when did you quit?: 1999 Hx Alcohol Use: No Drug/Substance Use Hx: No Substance Use Type: None Hx Substance Use Treatment: No Review of Systems - Review of Systems Able to Perform ROS?: Yes Comments:: 09/29/18 17:19 Constitutional - Pt denies Fever, Chills, weakness, HEENT: denies vision changes, sore throat Respiratory: Denies cough, sob, hemoptysis Cardiac: denies chest pain, palpitations, light headedness, leg swelling Abd/GI: denies abd pain, nausea, vomiting, blood per rectum, melena, diarrhea : denies dysuria, frequency, discharge Musculskelatal - +right should pain, swelling to the right hand. denies back pain, joint swelling skin - denies bruising, erythema, rash neurological: denies headache, numbness, focal weakness, tingling, ataxia, weakness hematologic: denies anemia, easy bruising, easy bleeding *Physical Exam - Physical Exam Comments: 09/29/18 17:19 GENERAL: The patient is in no acute distress. HEAD: Normal EYES: PERRLA, EOMI, sclera anicteric, conjunctiva clear. ENT: Ears normal, nares patent, oropharynx clear without exudates. Moist mucous membranes. NECK: Normal range of motion, supple without lymphadenopathy, JVD, or masses. LUNGS: Breath sounds equal, clear to auscultation bilaterally. No wheezes, and no crackles. HEART:Regular rate and rhythm, normal S1 and S2 without murmur, rub or gallop. ABDOMEN: Soft, nontender, normoactive bowel sounds. No guarding, no rebound. No masses palpable. EXTREMITIES: +tenderness in the right shoulder joint, able to flex, extend, abduction and adduct, pain with internal and external rotation, sensation intact , sensation to the hand intact, 2+ radial and ulnar pulse. Patient is right hand dominant. NEUROLOGICAL: Cranial nerves II through XII grossly intact. Normal speech. No focal neurological deficits. MUSCULOSKELETAL: Back non-tender to palpation, no CVA tenderness SKIN: Warm, Dry, normal turgor, no rashes or lesions noted. ED Treatment Course - RADIOLOGY Radiology Studies Ordered: Category Date Time Status SHOULDER-RIGHT [RAD] Stat Radiology 09/29/18 17:18 Ordered DUPLEX VASCUL US-1 ARM [US] Stat Ultrasound 09/29/18 17:18 Ordered Medical Decision Making - Medical Decision Making 09/29/18 17:37 63 yo RHD F presenting to the ER with a complaint of chronic right shoulder pain which has worsened over the past week No fevers or chills Possibly traumatically injured while cleaning closet Pt has had difficulty with ADLS which prompted her presentation to the ER On examination: ABduction, ADduction, Flexion and extension intact, limited by pain Internal and external rotation limited due to pain 2+ RP, UP sensation in tact flexion intact at elbow and wrist Will do: Xray shoulder duplex right upper extremity Tylenol #3 09/29/18 17:50 Duplex - no dvt, no local collection No erythema to suggest septic arthritis, no deformity to suggest fracture or dislocation Pt has known tendonitis Will be following up with [facility] *DC/Admit/Observation/Transfer Diagnosis at time of Disposition: Tendinitis of right shoulder Shoulder pain, right Qualifiers: Chronicity: chronic Qualified Code(s): M25.511 - Pain in right shoulder - Discharge Dispostion Disposition: HOME Condition at time of disposition: Stable Decision to Admit order: No - Prescriptions Prescriptions: Acetaminophen W/ Codeine #3 [Tylenol # 3 -] 1 tab PO Q8H PRN #15 tablet MDD 3 PRN Reason: Severe Pain - Referrals Referrals: Malick Garcia MD [Staff Physician] - - Patient Instructions Printed Discharge Instructions: DI for Shoulder Tendinopathy, DI for Calcific Tendonitis of the Shoulder, DI for Shoulder Pain Additional Instructions: Return to the emergency department immediately with ANY new, persistent or worsening symptoms. Continue any medications as previously prescribed by your physician. You should follow up with your primary doctor as soon as possible regarding today's emergency department visit. . Please make sure your doctor reviews the results of your emergency evaluation. Thank you for coming to the [facility] today for your care. It was a pleasure to see you today. Please note that your evaluation is INCOMPLETE until you follow-up with your doctor. - Post Discharge Activity
[2018-09-29 18:16] VITALS: BP 126/76; PULSE 71; TEMP 98.4; BMI 36.6
[2018-09-29] MEDS ORDERED: ACETAMINOPHEN WITH CODEINE 300MG/30MG TABLET ONE (18:17)
== END 2018-09-29 18:48 | disposition home or self-care (01) ==
LOC: FER 17:16
DX: M25.511 Pain in right shoulder (principal); M77.9 Enthesopathy, unspecified; Z87.891 Personal history of nicotine dependence; F32.9 Major depressive disorder, single episode, unspecified; K21.9 Gastro-esophageal reflux disease without esophagitis; Z98.84 Bariatric surgery status; K76.0 Fatty (change of) liver, not elsewhere classified
CPT/HCPCS: 73030-TC-RT-FY; 93971; 99282-25

== ENCOUNTER 2019-02-06 06:58 | Emergency (ER) | payer OTHER ==
--- NOTE | 2019-02-06 07:28 | PDOC ---
History of Present Illness - General Chief Complaint: Pain Stated Complaint: ABD PAIN Time Seen by Provider: 02/06/19 07:28 History Source: Patient Exam Limitations: No Limitations - History of Present Illness Initial Comments: Pt is a 63 yo F, with PMH of HTN, HLD, NIDDM, sickle cell trait, TIAs, remote breast CA (chemo, radiation, ended 2002), chronic pain 2/2 arthritis (knees, back, shoulders), who is presenting with diffuse upper abdominal pain since 3 am this morning. Pt states the pain is burning in quality, and woke her from sleep. The pain has been associated with nausea and 4-5 episodes of NBNB vomiting, and the pain is also radiating to her lower back where she has her regular pain from her arthritis. Pt endorses taking more ibuprofen daily, as she is trying to cut back on her opiate medications for arthritis. Pt denies any oral or rectal bleeding, and says she is still passing gas and has been having more regular BMs. Pt denies any recent fevers/chills, headache, vision changes, syncope, chest pain, palpitations, SOB, urinary symptoms, diarrhea/ constipation, or leg swelling. Allergies: NKDA PCP: Dr. Axel Reyes Social: Pt denies any cigarette, alcohol, or drug use. Pt denies any recent travel or sick contacts. Surgical: gastric sleeve (2005), , R mastectomy Family: no relevant history. 02/06/19 08:15 02/06/19 08:18 Past History - Travel Traveled outside of the country in the last 30 days: No Close contact w/someone who was outside of country & ill: No - Past Medical History Allergies/Adverse Reactions: Allergies Allergy/AdvReac Type Severity Reaction Status Date / Time codeine AdvReac Intermediate Nausea Verified 02/06/19 07:27 Home Medications: Ambulatory Orders Tamoxifen Citrate 20 mg PO DAILY 01/11/12 Amlodipine Besylate [Norvasc -] 5 mg PO AM 04/12/14 Albuterol Sulfate Inhaler - [Ventolin HFA Inhaler -] 1 - 2 inh PO QID PRN Aspirin [ASA -] 81 mg PO AM 06/14/16 Salmeterol/Fluticasone [Advair 250Mcg/50Mcg -] 1 inh IH DAILY PRN 06/14/16 Hydrochlorothiazide 25 mg PO AM 06/16/17 Acetaminophen [Tylenol] 650 mg PO QID PRN 01/11/18 Bisacodyl [Dulcolax] 5 mg PO DAILY 01/11/18 Diphenhydramine HCl [Benadryl Capsule -] 25 mg PO DAILY 01/11/18 Famotidine [Pepcid] 20 mg PO DAILY 01/11/18 Tizanidine HCl [Zanaflex] 4 mg PO HS 01/11/18 Topiramate [Topamax] 25 mg PO DAILY 01/11/18 Zolpidem Tartrate [Ambien] 10 mg PO HS 01/11/18 Cyanocobalamin [Vitamin B12 -] 1,000 mcg PO DAILY 11/24/18 Diclofenac Sodium 100 gm TP TID PRN 11/24/18 Gabapentin [Neurontin -] 300 mg PO Q8H 11/24/18 Pravastatin Sodium [Pravachol (Nf)] 20 mg PO HS 11/24/18 Sertraline HCl [Zoloft] 100 mg PO DAILY 11/24/18 Hydrocodone/Acetaminophen [Vicodin Es 7.5-300 mg Tablet] 1 each PO BID #60 tablet MDD 3 01/09/19 Anemia: Yes (AND SICKLE CELL TRAIT) Asthma: Yes Cancer: Yes (RT BREAST CA (chemo, RT)) Cardiac Disorders: No CVA: Yes (TIA X 3 last 2012) COPD: No CHF: No Dementia: No Diabetes: Yes (diet controlled) GI Disorders: Yes (GERD) Disorders: No HTN: Yes Hypercholesterolemia: Yes Liver Disease: Yes (FATTY LIVER) Psychiatric Problems: Yes (depression) Seizures: No ( ) Thyroid Disease: No - Surgical History Abdominal Surgery: Yes (bariatric GASTRIC SLEEVE 01/2011) Appendectomy: No Cardiac Surgery: No Cholecystectomy: No Gastric Stapling: Yes (gastric sleeve) Lung Surgery: No Neurologic Surgery: No Orthopedic Surgery: Yes (right heel surgery spur removal ) - Suicide/Smoking/Psychosocial Hx Smoking Status: No Smoking History: Former smoker Have you smoked in the past 12 months: No Number of Cigarettes Smoked Daily: 0 If you are a former smoker, when did you quit?: 1999 Hx Alcohol Use: No Drug/Substance Use Hx: No Substance Use Type: None Hx Substance Use Treatment: No Review of Systems - Review of Systems Able to Perform ROS?: Yes Is the patient limited Thai proficient: No Constitutional: Yes: Weight Stable. No: Chills, Diaphoresis, Fever, Loss of Appetite, Malaise, Weakness HEENTM: No: Recent change in vision, Nose Congestion, Throat Pain, Throat Swelling, Mouth Swelling Respiratory: No: Cough, Orthopnea, Shortness of Breath Cardiac (ROS): No: Chest Pain, Edema, Irregular Heart Rate, Lightheadedness, Palpitations, Syncope, Chest Tightness ABD/GI: Yes: See HPI, Nausea, Vomiting, Indigestion, Abdominal cramping. No: Abdominal Distended, Abd. Pain w/ defecation, Blood Streaked Bowels, Constipated , Diarrhea, Poor Appetite, Poor Fluid Intake, Tarry Stools : No: Burning, Dysuria, Flank Pain, Hematuria, Pain, Urgency Musculoskeletal: Yes: See HPI, Back Pain, Joint Pain (chronic). No: Joint Swelling, Muscle Pain, Muscle Weakness, Neck Pain Integumentary: No: Rash Neurological: No: Headache, Numbness, Paresthesia, Weakness, Ataxia, Dizziness Psychiatric: No: Sleep Pattern Change, Change in Appetite Endocrine: No: Increased Urine, Change in Weight Hematologic/Lymphatic: Yes: Other (sickle cell trait). No: Anemia, Blood Clots , Easy Bleeding, Easy Bruising All Other Systems: Reviewed and Negative *Physical Exam - Physical Exam Comments: HTN, pt afebrile. Pt with small amounts of clear vomit in ED, appears uncomfortable. Morbidly obese body habitus. Pt alert and oriented x3. 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 +paraspinal TTP over lumbar area. No midline spinal tenderness, step-offs, or crepitus. Head normocephalic, atraumatic. Eyes PERRLA, EOMI. Oropharynx without erythema or exudates, no LAD b/l. No nasal congestion, hearing intact. Clear heart sounds, S1/S2, no JVD, b/l pedal edema, or heart murmur. Clear lung sounds, no respiratory distress, wheezes, crackles, or accessory muscle use. Epigastric TTP, with no rebound, no guarding. No CVA tenderness. Abdomen soft, non-distended, and with normoactive bowel sounds. Skin without jaundice or rash. 02/06/19 08:19 ED Treatment Course - LABORATORY CBC & Chemistry Diagram: 02/06/19 08:17 02/06/19 08:17 Medical Decision Making - Medical Decision Making Pt was seen at bedside, also will be seen by attending Dr. Thrasher. Pt presenting with complaints of diffuse upper abdominal pain, with associated nausea/vomiting , likely 2/2 gastritis from increasing NSAID use. Pt having regular BMs and passing gas, unlikely obstructed. Pt also has extensive medical hx, including sickle trait, will evaluate for ischemic bowel with lactic acid. Providing GI medications and will reassess. Provided 1 g IV ofirmev, 20 mg IV pepcid, 4 mg IV zofran, and 1 L IV NS for improvement of nausea and pain. Will continue to reassess pt and monitor for symptomatic improvement. 02/06/19 08:21 All labs WNL, no elevated LFTs, no elevated lipase Trop <.02 Chest x-ray showed no acute pathology, no evidence of free air 02/06/19 09:[address] abd/pelvis with IV contrast, as pt still continues to have abdominal pain after GI cocktail. Provided 4 mg IV morphine. ECG: Sinus bradycardia (HR 53, MS 174, QRS 88, QTc 487). TWI in III, with no significant ST segment changes. No significant changes from prior ECG (January 2018). 02/06/19 10:27 CT showed GB distension with no apparent stones or wall thickening. Bladder wall mass. PT states she has had prior cystoscopy "which turned out fine" for the bladder mass. Will evaluate with RUQ and bladder US. 02/06/19 13:12 US showed no evidence of cholecystitis Posterior wall bladder mass discussed with DR. العلي, who will follow the pt in the clinic. Sent zofran to pt pharmacy for nausea. Pt can f/u with PCP and pain management. Strict return precautions provided with pt understanding. 02/06/19 15:10 *DC/Admit/Observation/Transfer Diagnosis at time of Disposition: Bladder mass Abdominal pain Qualifiers: Abdominal location: epigastric Qualified Code(s): R10.13 - Epigastric pain - Discharge Dispostion Disposition: HOME Condition at time of disposition: Improved Decision to Admit order: No - Referrals Referrals: Axel Reyes MD [Primary Care Provider] - Benjy العلي MD [Staff Physician] - - Patient Instructions Printed Discharge Instructions: DI for Abdominal Pain-Adult Additional Instructions: You were seen in the ER today for abdominal pain. The results of your labs and imaging today were normal, except for a bladder mass which you need to follow- up with Urology. Please follow-up with your primary care doctor and Urology ( Dr. العلي) within 1-2 days to discuss your visit and make sure your symptoms have improved. Please return to the ER if you have any worsening pain, development of fevers or chills, loss of consciousness, inability to tolerate food or fluids, or any other concerns. I have sent medications to your pharmacy. Please take these medications as prescribed. You can take tylenol or motrin every 4-6 hours as needed for pain. - Post Discharge Activity
[2019-02-06 07:33] VITALS: PULSE 56; BMI 38.9
[2019-02-06] MEDS ORDERED: FAMOTIDINE 20 MG/50 ML IVPB 20 MG/50 ML MG IVPB ONE ×2 (07:42→07:57)
[2019-02-06] MEDS ORDERED: ONDANSETRON 4 MG/2 ML VIAL IVPUSH ONE (07:42)
[2019-02-06] MEDS ORDERED: ACETAMINOPHEN 1000 MG/100 ML VIAL (NON FORMULARY) IVPB ONE (07:42)
[2019-02-06] MEDS ORDERED: SODIUM CHLORIDE 1,000 ML IV STA (07:42)
[2019-02-06] MEDS ORDERED: ACETAMINOPHEN INJECTION 100 ML IVPB ONE (07:56)
[2019-02-06] MEDS ORDERED: ONDANSETRON 4 MG/2 ML VIAL ONE (07:57)
--- NOTE | 2019-02-06 08:02 | PDOC ---
Attending Attestation - Resident Resident Name: Taylor Holm - ED Attending Attestation I have performed the following: I have examined & evaluated the patient, The case was reviewed & discussed with the resident, I agree w/resident's findings & plan, Exceptions are as noted - HPI HPI: 02/06/19 08:44 Ms Chi is a 63 yo F h/o HTN, HLD, NIDDM, sickle cell trait, TIAs, remote breast CA (chemo, radiation, ended 2002), chronic pain 2/2 arthritis (knees, back, shoulders previously on narcotics prescribed by pain management), who is presenting to the ER with a complaint of bandlike upper abdominal pain since 3 am this morning. she describes the pain as "burning" so severe that it work her form sleep, radiated to her lower back where she has her regular pain from her arthritis (+) Nausea and vomiting (NBNB) in order to wean off of narcotis, pt has been taking ibuprofen daily Nml BMs, (+) flatus No fevers or chills No diarrhea Surgical: gastric sleeve (2005), , R mastectomy 02/06/19 08:18 - Physicial Exam PE: 02/06/19 08:02 GENERAL: The patient is retching/vomiting upon examination. ENT: Ears normal, nares patent, oropharynx clear without exudates. Dry mucous membranes. NECK: Normal range of motion, supple LUNGS: Breath sounds equal, clear to auscultation bilaterally. No wheezes, and no crackles. HEART:Regular rate and rhythm, normal S1 and S2 without murmur, rub or gallop. ABDOMEN: Soft, uppser abdominal tenderness to palpation EXTREMITIES: Normal range of motion, no edema. NEUROLOGICAL: Cranial nerves II through XII grossly intact. Normal speech. No focal neurological deficits. SKIN: Warm, Dry, normal turgor, no rashes or lesions noted. 02/06/19 08:47 - Medical Decision Making 02/06/19 08:47 63 yo F presenting with a complaint of upper abdominal tenderness, nausea and vomiting DD includes but is not limited to : Pancreaitis, Biliary colic, gastritis/GERD, ACS Will do: Labs EKG IVF Antacid, antiemetic CT abd and pelvis EKG:Sinus braycardia rate of 53 bpm, axis nml, intervals nml, no s elevation or depression, t wave inversion III 02/06/19 12:59 Laboratory Tests 02/06/19 02/06/19 02/06/19 08:17 08:17 10:27 WBC 8.4 Hgb 12.3 Hct 36.0 Plt Count 212 BUN 21.0 H Creatinine 0.7 Troponin I < 0.02 Lipase 68 L Urine Blood Trace Ur Leukocyte Esterase Negative CT: 1) GB distention, no stone or wall enhancement, no PCCF 2) Mass at the base of the bladder measuring 3.3 x 2.9 x 2.3 cm with mass like extension along the left lateral bladder wall Will do: US GB and Bladder Will consult Urology vomiting and epigastric pain consistent with gastritis/GERD if US neg 02/06/19 14:58 US: GB nml, no cholecystitis US: demonstrates mass in the bladder with vascular flow Call placed to Dr. العلي re: plan for work up Pt given copies of CT and US Pt shown exactly the findings which are of concern to us because it could be a malignancy Pt asked to call TOMORROW MORNING for follow up appt with Urology (for cystoscopy)
[2019-02-06 08:33] LABS: BASO % 0.6 % (0-2.0); EOS % 0.5 % (0-4.5); HEMOGLOBIN 12.3 GM/dL (10.7-15.3); MCH 28.8 pg (25.7-33.7); MCHC 34.1 g/dl (32.0-36.0); MEAN CELL VOLUME 84.4 fl (80-96); MEAN PLT VOLUME 9.7 fl (7.5-11.1); MONO % 2.5 % (3.8-10.2); NEUT % 81.4 % (42.8-82.8); PLATELET COUNT 212 K/MM3 (134-434); RBC 4.26 M/mm3 (3.60-5.2); RDW 13.2 % (11.6-15.6); WHITE BLOOD COUNT 8.4 K/mm3 (4.0-10.0)
[2019-02-06 08:46] LABS: INR 0.92 (0.83-1.09); PROTHROMBIN TIME (PATIENT) 10.9 SEC (9.7-13.0)
[2019-02-06 08:55] LABS: ALK PHOS 86 U/L (45-117); ANION GAP 10 MMOL/L (8-16); BILIRUBIN,TOTAL 0.4 mg/dL (0.2-1); CALCIUM 9.1 mg/dL (8.5-10.1); CHLORIDE 106 mmol/L (98-107); CO2 25 mmol/L (21-32); CREATININE 0.7 mg/dL (0.55-1.3); GLUCOSE,RANDOM 152 mg/dL (74-106); LIPASE 68 U/L (73-393); POTASSIUM 3.5 mmol/L (3.5-5.1); SGOT/AST 19 U/L (15-37); SGPT/ALT 26 U/L (13-61); SODIUM 141 mmol/L (136-145); TOT PROT 7.8 g/dl (6.4-8.2)
[2019-02-06] MEDS ORDERED: morphine CARPU-JECT 4 MG/1 ML DISP.SYRIN IVPUSH ONE (09:32)
[2019-02-06] MEDS ORDERED: morphine SULFATE 4 MG/ML VIAL ONE (10:06)
[2019-02-06 10:56] LABS: EPI CELLS 0.9 /HPF (0-5/HPF); HYALINE CASTS 0 /lpf (0-8); URINE APPEARANCE CLEAR; URINE BACTERIA 7.6 /hpf (NEGATIVE); URINE BILIRUBIN NEGATIVE (NEGATIVE); URINE COLOR YELLOW; URINE GLUCOSE (UA) NEGATIVE (NEGATIVE); URINE KETONE TRACE (NEGATIVE); URINE LEUK ESTERASE NEGATIVE (NEGATIVE); URINE NITRITE NEGATIVE (NEGATIVE); URINE PROTEIN NEGATIVE (NEGATIVE); URINE RBC 4 /hpf (0-4); URINE UROBILINOGEN 0.2 mg/dL (0.2-1.0); URINE WBC 3 /hpf (0-5)
[2019-02-06] MEDS ORDERED: LIDOCAINE 5% TOPICAL PATCH TP ONE (11:43)
[2019-02-06] MEDS ORDERED: MAG HYDROX/AL HYDROX/SIMETH 30 ML UNIT-DOSE CUP PO ONE (11:43)
[2019-02-06] MEDS ORDERED: LIDOCAINE VISCOUS 2% ORAL/TOP 20 ML UNIT-DOSE CUP MM ONE (11:44)
[2019-02-06] MEDS ORDERED: LIDOCAINE VISCOUS 2% ORAL/TOP 20 ML UNIT-DOSE CUP ONE (12:15)
[2019-02-06] MEDS ORDERED: MAG HYDROX/AL HYDROX/SIMETH 30 ML UNIT-DOSE CUP ONE (12:15)
[2019-02-06] MEDS ORDERED: LIDOCAINE 5% TOPICAL PATCH ONE (12:15)
--- NOTE | 2019-02-06 12:41 | EKG ---
Test Reason : Blood Pressure : / mmHG Vent. Rate : 053 BPM Atrial Rate : 053 BPM P-R Int : 174 ms QRS Dur : 088 ms QT Int : 520 ms P-R-T Axes : 014 007 024 degrees QTc Int : 487 ms SINUS BRADYCARDIA WITH SINUS ARRHYTHMIA MODERATE VOLTAGE CRITERIA FOR LVH, MAY BE NORMAL VARIANT BORDERLINE ECG WHEN COMPARED WITH ECG OF 11-JAN-2018 22:02, NO SIGNIFICANT CHANGE WAS FOUND Confirmed by Marquis Vogel MD ([id number]) on 02/06/2019 12:41:10 PM Referred By: Confirmed By:Marquis Vogel MD
[2019-02-06 14:43] VITALS: BP 146/80; TEMP 98.3
[2019-02-06] MEDS ORDERED: LIDOCAINE PATCH REMOVAL MC SCH (22:00)
== END 2019-02-06 15:40 | disposition home or self-care (01) ==
LOC: SUPCPDRO 06:58 → JER 06:58
DX: K29.70 Gastritis, unspecified, without bleeding (principal); N32.89 Other specified disorders of bladder; I10 Essential (primary) hypertension; E78.5 Hyperlipidemia, unspecified; E11.9 Type 2 diabetes mellitus without complications; Z79.84 Long term (current) use of oral hypoglycemic drugs; M12.9 Arthropathy, unspecified; D57.3 Sickle-cell trait; Z86.73 Personal history of transient ischemic attack (TIA), and cerebral infarction without residual deficits; Z85.3 Personal history of malignant neoplasm of breast
CPT/HCPCS: 36415; 71045-TC-FY; 74177-TC; 76705-TC; 76856-TC; 80053; 81003; 82550; 83605; 83690; 84484; 85025; 85610; 86850; 86900; 86901; 87086; 93005; 93010; 99283-25; J0131; J7030

== ENCOUNTER 2020-10-03 04:22 | Day surgery (SDC) | payer OTHER ==
[2020-10-02 13:33] VITALS: BMI 37.5
[2020-10-03] MEDS ORDERED: LIDOCAINE HCL 1% PRESERVATIVE FREE - 30ML VIAL INF ONE (11:55)
[2020-10-03] MEDS ORDERED: BUPIVACAINE HCL/PF 0.75% 10 ML VIAL PNB ONE (11:57)
[2020-10-03] MEDS ORDERED: BUPIVACAINE HCL/PF 0.75% 10 ML VIAL NR ONE (11:57)
[2020-10-03] MEDS ORDERED: IOHEXOL 180 MG/1 ML ML IJ ONE (11:58)
[2020-10-03] MEDS ORDERED: IOHEXOL 180 MG/1 ML ML IT ONE (11:58)
[2020-10-03 13:09] VITALS: BP 116/67; PULSE 60; TEMP 97.9
== END 2020-10-03 12:45 | disposition home or self-care (01) ==
LOC: JASU-SURG 04:22
PROVIDERS: ATTEND Pain Medicine Pain Medicine
PROC: BR16YZZ Fluoroscopy of Lumbar Facet Joint(s) using Other Contrast (ICD-10-PCS; 2020-10-03)
PROC: 3E0T3BZ Introduction of Anesthetic Agent into Peripheral Nerves and Plexi, Percutaneous Approach (ICD-10-PCS; principal; 2020-10-03 12:00)
DX: M47.816 Spondylosis without myelopathy or radiculopathy, lumbar region (principal)
CPT/HCPCS: 76000-TC-FY

== ENCOUNTER 2021-02-20 04:11 | Day surgery (SDC) | payer OTHER ==
[2021-02-17 16:37] VITALS: BMI 38.2
[2021-02-20] MEDS ORDERED: LIDOCAINE HCL/PF 1% SDV 5ML VIAL ONE ×2 (07:12→12:28)
[2021-02-20] MEDS ORDERED: BUPIVACAINE HCL/PF 0.75% 10 ML VIAL ONE (07:12)
[2021-02-20] MEDS ORDERED: LIDOCAINE HCL/PF 2% SDV 5ML VIAL ONE (07:16)
[2021-02-20] MEDS ORDERED: LIDOCAINE HCL 1% PRESERVATIVE FREE - 30ML VIAL IJ ONE (11:28)
[2021-02-20] MEDS ORDERED: LIDOCAINE HCL 2% (50ML VIAL) NR ONE (11:29)
[2021-02-20] MEDS ORDERED: IOHEXOL 180 MG/1 ML ML IJ ONE (11:30)
[2021-02-20] MEDS ORDERED: BUPIVACAINE HCL/PF 0.75% 10 ML VIAL NR ONE ×2 (11:34→12:02)
[2021-02-20] MEDS ORDERED: DEXAMETHASONE SOD PHOSPHATE 10 MG/1 ML VIAL IVPUSH ONE (11:34)
[2021-02-20 13:05] VITALS: BP 110/70; PULSE 60; TEMP 98
== END 2021-02-20 13:25 | disposition home or self-care (01) ==
LOC: JASU-SURG 04:11
PROVIDERS: ATTEND Pain Medicine Pain Medicine
PROC: 3E0T3TZ Introduction of Destructive Agent into Peripheral Nerves and Plexi, Percutaneous Approach (ICD-10-PCS; principal; 2021-02-20 10:00)
PROC: BR16YZZ Fluoroscopy of Lumbar Facet Joint(s) using Other Contrast (ICD-10-PCS; 2021-02-20 10:00)
DX: M47.816 Spondylosis without myelopathy or radiculopathy, lumbar region (principal)
CPT/HCPCS: 76000-TC-FY; J1100

== ENCOUNTER 2021-03-24 04:36 | Day surgery (SDC) | payer OTHER ==
[2021-03-20 12:48] VITALS: BMI 35.9
[2021-03-24] MEDS ORDERED: BUPIVACAINE HCL/PF 0.75% 10 ML VIAL ONE (12:33)
[2021-03-24] MEDS ORDERED: LIDOCAINE HCL 2% (50ML VIAL) PNB ONE (12:52)
[2021-03-24] MEDS ORDERED: IOHEXOL 180 MG/1 ML ML IJ ONE (12:53)
[2021-03-24] MEDS ORDERED: LIDOCAINE HCL 1%, 10 MG/ML (20ML VIAL) PNB ONE (12:54)
[2021-03-24 14:16] VITALS: BP 121/78; PULSE 60; TEMP 97.9
== END 2021-03-24 13:55 | disposition home or self-care (01) ==
LOC: JASU-SURG 04:36
PROVIDERS: ATTEND Pain Medicine Pain Medicine
PROC: 3E0T3TZ Introduction of Destructive Agent into Peripheral Nerves and Plexi, Percutaneous Approach (ICD-10-PCS; principal; 2021-03-24 11:15)
DX: M47.816 Spondylosis without myelopathy or radiculopathy, lumbar region (principal)
CPT/HCPCS: 76000-TC-FY

== ENCOUNTER 2022-03-05 04:06 | Day surgery (SDC) | payer OTHER ==
[2022-03-04 11:12] VITALS: BMI 40.4
[2022-03-05 09:40] VITALS: RESP 20
[2022-03-05] MEDS ORDERED: LIDOCAINE HCL/PF 2% SDV 5ML VIAL SQ ONE (11:31)
[2022-03-05] MEDS ORDERED: LIDOCAINE HCL 1% PRESERVATIVE FREE - 30ML VIAL IJ ONE (11:32)
[2022-03-05] MEDS ORDERED: DEXAMETHASONE SOD PHOSPHATE 10 MG/1 ML VIAL IVPUSH ONE (11:33)
[2022-03-05] MEDS ORDERED: BUPIVACAINE HCL/PF 0.75% 10 ML VIAL NR ONE (11:34)
[2022-03-05 13:24] VITALS: BP 138/78; PULSE 70; TEMP 96.6
== END 2022-03-05 13:40 | disposition home or self-care (01) ==
LOC: JASU-SURG 04:06
PROVIDERS: ATTEND Pain Medicine Pain Medicine
PROC: 3E0T3TZ Introduction of Destructive Agent into Peripheral Nerves and Plexi, Percutaneous Approach (ICD-10-PCS; principal; 2022-03-05 10:15)
PROC: BR16YZZ Fluoroscopy of Lumbar Facet Joint(s) using Other Contrast (ICD-10-PCS; 2022-03-05 10:15)
DX: M47.816 Spondylosis without myelopathy or radiculopathy, lumbar region (principal)
CPT/HCPCS: 76000-TC-FY; J1100

== ENCOUNTER 2023-07-01 03:52 | Day surgery (SDC) | payer OTHER ==
[2023-06-23 17:19] VITALS: BMI 39.2
[~2023-07-01 03:52] MED LIST changes: -BETAMET ACET/BETAMET NA PH 30 MG/5 ML VIAL IJ ONE; -BETAMET ACET/BETAMET NA PH 30 MG/5 ML VIAL IM ONE; -BUPIVACAINE HCL/PF 0.25% (2.5MG/ML) 10 ML VIAL IJ ONE; +BUPIVACAINE HCL/PF 0.75% 10 ML VIAL NR ONE; +DEXAMETHASONE SOD PHOSPHATE 10 MG/1 ML VIAL IVPUSH ONE; -IOHEXOL 180 MG/1 ML ML IJ ONE; +LIDOCAINE 1% P/F 10 MG/ML VIAL INF ONE; -LIDOCAINE HCL 1%, 10 MG/ML (20ML VIAL) IJ ONE; +LIDOCAINE HCL/PF 2% SDV 5ML VIAL INF ONE
[2023-07-01 06:27] VITALS: RESP 18
[2023-07-01] MEDS ORDERED: BUPIVACAINE HCL/PF 0.75% 10 ML VIAL ONE (07:10)
[2023-07-01] MEDS ORDERED: LIDOCAINE HCL/PF 1% SDV 5ML VIAL ONE ×2 (07:10)
[2023-07-01] MEDS ORDERED: LIDOCAINE HCL/PF 2% SDV 5ML VIAL ONE (07:36)
[2023-07-01] MEDS ORDERED: DEXAMETHASONE SOD PHOSPHATE 10 MG/1 ML VIAL ONE (08:03)
[2023-07-01] MEDS ORDERED: LIDOCAINE 1% P/F 10 MG/ML VIAL INF ONE (08:45)
[2023-07-01] MEDS ORDERED: LIDOCAINE HCL/PF 2% SDV 5ML VIAL INF ONE (08:52)
[2023-07-01] MEDS ORDERED: BUPIVACAINE HCL/PF 0.75% 10 ML VIAL NR ONE (08:53)
[2023-07-01] MEDS ORDERED: DEXAMETHASONE SOD PHOSPHATE 10 MG/1 ML VIAL IVPUSH ONE (09:29)
[2023-07-01] MEDS ORDERED: ACETAMINOPHEN 500 MG TABLET (FP) PO PRN (11:05)
[2023-07-01 11:10] VITALS: PULSE 57
[2023-07-01 11:12] VITALS: BP 138/72; TEMP 97.9
== END 2023-07-01 10:23 | disposition home or self-care (01) ==
LOC: JASU-SURG 03:52
PROVIDERS: ATTEND Pain Medicine Pain Medicine
PROC: 015B3ZZ Destruction of Lumbar Nerve, Percutaneous Approach (ICD-10-PCS; principal; 2023-07-01 08:00)
DX: M47.816 Spondylosis without myelopathy or radiculopathy, lumbar region (principal)
CPT/HCPCS: 76000-TC-FY; J1100

== ENCOUNTER 2024-04-05 04:08 | Day surgery (SDC) | payer OTHER ==
[2024-04-03 14:46] VITALS: BMI 38.2
[2024-04-05 08:30] VITALS: RESP 18
[2024-04-05] MEDS ORDERED: ACETAMINOPHEN 500 MG TABLET (FP) PO PRN (08:51)
[2024-04-05] MEDS: LIDOCAINE HCL 1% PRESERVATIVE FREE - 30ML VIAL IJ ONE (08:59)
[2024-04-05] MEDS: BUPIVACAINE HCL/PF 0.75% 10 ML VIAL NR ONE (08:59)
[2024-04-05] MEDS: DEXAMETHASONE SOD PHOSPHATE 10 MG/1 ML VIAL IVPUSH ONE (09:00)
[2024-04-05] MEDS: LIDOCAINE HCL 2% (50ML VIAL) NR ONE (09:00)
[2024-04-05 09:50] VITALS: BP 138/79; PULSE 52; TEMP 97.1
== END 2024-04-05 11:15 | disposition home or self-care (01) ==
LOC: JASU-SURG 04:08
PROVIDERS: ATTEND Pain Medicine Pain Medicine
PROC: 015B3ZZ Destruction of Lumbar Nerve, Percutaneous Approach (ICD-10-PCS; principal; 2024-04-05 09:30)
DX: M47.816 Spondylosis without myelopathy or radiculopathy, lumbar region (principal)
CPT/HCPCS: 76000-TC-FY; J1100

== ENCOUNTER 2024-06-26 11:41 | Inpatient (IN) | payer OTHER ==
[2024-06-26 11:59] VITALS: BMI 38.2
[2024-06-26] MEDS ORDERED: ALBUTEROL SO4 2.5/IPRATROPIUM 0.5 INH SOL 3 ML VIAL.NEB. NEB ONE (12:44)
[2024-06-26] MEDS: ALBUTEROL SO4 2.5/IPRATROPIUM 0.5 INH SOL 3 ML VIAL.NEB. NEB SCH ×2 (13:05→17:07)
[2024-06-26] MEDS ORDERED: methylPREDNISolone NA SUCC 125 MG/2 ML VIAL ONE (13:06)
[2024-06-26] MEDS ORDERED: ACETAMINOPHEN INJECTION 100 ML ONE (13:06)
[2024-06-26 13:33] LABS: INR 1.06 (0.83-1.09); PROTHROMBIN TIME (PATIENT) 12.1 SEC (9.7-13.0)
[2024-06-26 13:34] LABS: HEMATOCRIT 34.2 % (32.4-45.2); HEMOGLOBIN 10.8 G/dL (10.7-15.3); MCH 31.4 pg (25.7-33.7); MCHC 31.5 g/dl (32.0-36.0); MEAN CELL VOLUME 99.6 fl (80-96); MEAN PLT VOLUME 9.7 fl (7.5-11.1); PLATELET COUNT 144.5 10^3/uL (134-434); RBC 3.43 10^6/uL (3.60-5.2); RDW 13.9 % (11.6-15.6); WHITE BLOOD COUNT 6.9 10^3/uL (4.0-10.8)
[2024-06-26 13:36] LABS: ACTIVATED PTT 28.2 SECONDS (25.2-36.5)
[2024-06-26 13:46] LABS: PLATELET ESTIMATE ADEQUATE
[2024-06-26 14:05] LABS: VENOUS BASE EXCESS -0.5 mmol/L (-2-2); VENOUS PCO2 59.7 mmHg (38-52); VENOUS PH 7.277 (7.310-7.410)
[2024-06-26 14:20] LABS: ALBUMIN 3.2 g/dl (3.4-5.0); BILIRUBIN,TOTAL 0.6 mg/dl (0.2-1); CALCIUM 8.5 mg/dl (8.5-10.1); CREATININE 0.9 mg/dl (0.6-1.3); POTASSIUM 4.1 mmol/L (3.5-5.1); TOT PROT 5.4 g/dl (6.4-8.2)
[2024-06-26] MEDS: methylPREDNISolone NA SUCC 125 MG/2 ML VIAL IVPB ONE (15:18)
[2024-06-26] MEDS: ACETAMINOPHEN 1000 MG/100 ML BAG IVPB ONE (15:19)
[2024-06-26] MEDS ORDERED: ACETAMINOPHEN 325 MG TABLET (FP) ONE (15:20)
[2024-06-26] MEDS ORDERED: DEXAMETHASONE SOD PHOSPHATE 10 MG/1 ML VIAL ONE (15:20)
[2024-06-26] MEDS: DEXAMETHASONE SOD PHOSPHATE 10 MG/1 ML VIAL PO ONE (15:29)
[2024-06-26] MEDS: ACETAMINOPHEN 325 MG TABLET (FP) PO ONE (15:29)
[2024-06-26] MEDS ORDERED: AZITHROMYCIN IVPB 500 MG/250 ML BAG IVPB ONE (16:15)
[2024-06-26] MEDS: SODIUM CHLORIDE 0.9% 500 ML INFUS.BAG IV ONE (17:09)
[2024-06-26] MEDS: AZITHROMYCIN 250 MG TABLET PO ONE (17:35)
[2024-06-26] MEDS: OSELTAMIVIR PHOSPHATE 75 MG CAPSULE PO SCH (17:35)
[2024-06-26] MEDS: ZOLPIDEM TARTRATE 5 MG TABLET PO PRN (20:40)
[2024-06-26] MEDS: SERTRALINE HCL 50 MG TABLET (FP) PO SCH (21:07)
[2024-06-26] MEDS: ROSUVASTATIN CA 10 MG TABLET PO SCH (21:07)
[2024-06-26] MEDS: INSULIN ASPART SLIDING SCALE (NOVOLOG) 1 VIAL SQ SCH (22:37)
[2024-06-27] MEDS: LEVOTHYROXINE NA 50 MCG TABLET (FP) PO SCH (06:37)
[2024-06-27 08:13] LABS: INR 1.06 (0.83-1.09); PROTHROMBIN TIME (PATIENT) 12.1 SEC (9.7-13.0)
[2024-06-27] MEDS ORDERED: BENZOCAINE/MENTHOL (CHLORASEPTIC ) LOZENGE MM PRN (08:40)
[2024-06-27 08:59] LABS: CALCIUM 8.4 mg/dl (8.5-10.1); CREATININE 0.9 mg/dl (0.6-1.3); POTASSIUM 4.1 mmol/L (3.5-5.1)
[2024-06-27] MEDS: guaiFENesin/D-METHORPHAN HB 10 ML UNIT-DOSE CUPS PO PRN (09:27)
[2024-06-27] MEDS: predniSONE 20 MG TABLET (UD) PO SCH (09:27)
[2024-06-27] MEDS: ASPIRIN 81 MG CHEWABLE TABLETS PO SCH (09:28)
[2024-06-27] MEDS: amLODIPine BESYLATE 10 MG TABLET (FP) PO SCH (09:28)
[2024-06-27] MEDS: AZITHROMYCIN 250 MG TABLET PO SCH (09:28)
[2024-06-27] MEDS: CYANOCOBALAMIN 1,000 MCG TABLET (FP) PO SCH (09:28)
[2024-06-27] MEDS: ENOXAPARIN NA (PORCINE) 40 MG/0.4 ML DISP.SYRIN SQ SCH (09:28)
[2024-06-27 09:33] LABS: BASO % 0.2 % (0-2.0); HEMATOCRIT 30.2 % (32.4-45.2); LYMPH % 13.5 % (8-40); MCH 32.3 pg (25.7-33.7); MCHC 33.1 g/dl (32.0-36.0); MEAN CELL VOLUME 97.5 fl (80-96); MEAN PLT VOLUME 9.4 fl (7.5-11.1); MONO % 3.3 % (3.8-10.2); PLATELET COUNT 119 10^3/uL (134-434); RDW 15.4 % (11.6-15.6); WHITE BLOOD COUNT 4.5 K/mm3 (4.0-10.0)
[2024-06-27] MEDS ORDERED: amLODIPine BESYLATE 10 MG TABLET (FP) PO SCH (10:00)
[2024-06-27] MEDS ORDERED: AZITHROMYCIN IVPB 250 MG in DEXTROSE 5%-WATER - 250 ML IVPB SCH (10:00)
[2024-06-27] MEDS: ACETAMINOPHEN 325 MG TABLET (FP) PO PRN (10:11)
[2024-06-27] MEDS: oxyCODONE HCL 5 MG TABLET PO PRN (10:11)
[2024-06-28 11:59] VITALS: RESP 18; TEMP 98.5
[2024-06-28 18:34] VITALS: BP 134/82; PULSE 72
== END 2024-06-28 18:39 | disposition home or self-care (01) | DRG 153 ==
LOC: FER 11:41 → FM/S 15:37
PROVIDERS: ADMIT Internal Medicine; ATTEND Internal Medicine
DX: J11.1 Influenza due to unidentified influenza virus with other respiratory manifestations (principal); I10 Essential (primary) hypertension; E78.5 Hyperlipidemia, unspecified; E11.9 Type 2 diabetes mellitus without complications; C67.9 Malignant neoplasm of bladder, unspecified; I69.322 Dysarthria following cerebral infarction; J45.909 Unspecified asthma, uncomplicated; F32.A Depression, unspecified; D57.3 Sickle-cell trait; E03.9 Hypothyroidism, unspecified; Z98.84 Bariatric surgery status; Z85.3 Personal history of malignant neoplasm of breast
CPT/HCPCS: 0241U-QW; 36415; 71046-TC-FY; 80048; 80053; 81003; 81015; 82803; 82962; 83605; 84484; 85025; 85027; 85610; 85730; 86850; 86900; 86901; 87040; 87086; 93005; 94640; 97116-GP; 97162-GP; 99285-25; J1100

== ENCOUNTER 2024-11-26 14:00 | Emergency (ER) | payer OTHER ==
[2024-11-26 14:09] VITALS: BP 147/89; PULSE 88; RESP 19; TEMP 98.1; BMI 34.2
[2024-11-26 14:57] LABS: BASOPHILS # 0.01 x10^3/uL (0.01-0.08); EOSINOPHIL % 13.8 % (0.7-5.8); EOSINOPHILS # 0.87 x10^3/uL (0.04-0.36); HEMATOCRIT 32.1 % (34.1-44.9); HEMOGLOBIN 10.4 g/dL (11.2-15.7); MCHC 32.4 g/dl (32.2-35.5); MEAN CELL VOLUME 94.4 fl (79.4-94.8); MEAN PLT VOLUME 9.7 fl (9.4-12.3); MONOCYTE # 0.24 x10^3/uL (0.24-0.86); MONOCYTE % 3.8 % (4.7-12.5); PLATELET COUNT 140 x10^3/uL (182-369); RDW 15.7 % (12.4-16.6)
[2024-11-26] MEDS: SODIUM CHLORIDE 0.9% 500 ML INFUS.BAG IV ONE (15:05)
[2024-11-26] MEDS ORDERED: ACETAMINOPHEN INJECTION 100 ML ONE (15:10)
[2024-11-26] MEDS ORDERED: ONDANSETRON 4 MG/2 ML VIAL ONE (15:10)
[2024-11-26] MEDS ORDERED: FAMOTIDINE 20 MG/50 ML IVPB 20 MG/50 ML MG IVPB ONE (15:10)
[2024-11-26] MEDS ORDERED: MAG HYDROX/AL HYDROX/SIMETH 30 ML UNIT-DOSE CUP ONE (15:11)
[2024-11-26] MEDS: MAG HYDROX/AL HYDROX/SIMETH 30 ML UNIT-DOSE CUP PO ONE (15:15)
[2024-11-26] MEDS: ACETAMINOPHEN 1000 MG/100 ML BAG IVPB ONE (15:15)
[2024-11-26] MEDS: FAMOTIDINE 20 MG/50 ML IVPB 20 MG/50 ML MG IVPB ONE (15:20)
[2024-11-26] MEDS: ONDANSETRON 4 MG/2 ML VIAL IVPUSH ONE (15:25)
[2024-11-26 15:36] LABS: ALBUMIN 3.1 g/dl (3.4-5.0); BILIRUBIN,TOTAL 0.6 mg/dl (0.2-1); CALCIUM 8.3 mg/dl (8.5-10.1); CREATININE 0.8 mg/dl (0.6-1.3); MAGNESIUM 1.8 mg/dL (1.8-2.4); POTASSIUM 3.9 mmol/L (3.5-5.1); TOT PROT 5.4 g/dl (6.4-8.2)
== END 2024-11-26 17:15 | disposition home or self-care (01) ==
LOC: FER 14:00
PROC: 3E033GC Introduction of Other Therapeutic Substance into Peripheral Vein, Percutaneous Approach (ICD-10-PCS; principal; 2024-11-26)
PROC: 3E033NZ Introduction of Analgesics, Hypnotics, Sedatives into Peripheral Vein, Percutaneous Approach (ICD-10-PCS; 2024-11-26)
PROC: 3E033GC Introduction of Other Therapeutic Substance into Peripheral Vein, Percutaneous Approach (ICD-10-PCS; 2024-11-26)
DX: R09.89 Other specified symptoms and signs involving the circulatory and respiratory systems (principal); R42 Dizziness and giddiness; R29.898 Other symptoms and signs involving the musculoskeletal system
CPT/HCPCS: 0241U-QW; 36415; 71046-TC-FY; 71275-TC; 80053; 83735; 84484; 85025; 93005; 96365; 96375; 99285-25; Q9967